=== PATIENT | female | born 1955 | race Caucasian/White ===

== ENCOUNTER 2022-06-24 10:53 | Outpatient (CLI) | payer MEDICARE, SELFPAY ==
--- NOTE | ~2022-06-24 | XR_ITS ---
Right Knee Technique: AP, lateral, and sunrise views were obtained. Clinical History: Pain Findings: No fracture or dislocation is seen. There is moderate to advanced tricompartmental osteophy tosis, probably worst in the medial compartment.. Soft tissues are unremarkable. No joint effusion is seen. Impression: Moderate to severe tricompartmental osteoarthritis. Reviewed, dictated and finalized at location . Impression: Moderate to severe tricompartmental osteoarthritis.
--- NOTE | ~2022-06-24 | XR_ITS ---
Right wrist Technique: PA, oblique, lateral, and ulnar deviation views were obtained. Clinical History: Pain Findings: There is probable widening is stable interval 6 mm, consistent with underlying scapholunate ligament tear. There is moderate degenerative change of the radial scaphoid articulation. There is a ssociated dorsal tilt of the lunate on lateral view consistent with DISI. Soft tissues are unremarkab le. Impression: Probable scapholunate ligament tear with associated DISI. Reviewed, dictated and finalized at location M. Impression: Probable scapholunate ligament tear with associated DISI.
--- NOTE | ~2022-06-24 | XR_ITS ---
Right Hand Technique: PA, oblique, and lateral views were obtained. Clinical History: Pain Findings: No acute fracture or dislocation is seen. There is advanced degenerative change of the seco nd DIP joint. Remaining joint spaces and the hand appear intact. There is degenerative change at the radial scaphoid articulation.. Soft tissues are unremarkable. Impression: Advanced degenerative change of the second DIP joint. Moderate to advanced degenerative change at the radial scaphoid articulation. Reviewed, dictated and finalized at location M. Impression: Advanced degenerative change of the second DIP joint. Moderate to advanced degenerative change at the radial scaphoid articulation.
--- NOTE | ~2022-06-24 | XR_ITS ---
Right Shoulder Technique: AP and scapular Y views were obtained. Clinical History: Pain Findings: No fracture or dislocation is seen. Suture anchor noted at the humeral head. Osseous alignm ent is anatomic. There is minimal degenerative change of the glenohumeral joint. Soft tissues are unr emarkable. Impression: No acute fracture or dislocation. Minimal degenerative change of the glenohumeral joint. Suture anchors at the humeral head. Correlate with surgical history. Reviewed, dictated and finalized at [facility]. Impression: No acute fracture or dislocation. Minimal degenerative change of the glenohumeral joint. Suture anchors at the humeral head. Correlate with surgical history.
== END 2022-06-24 10:54 | disposition home or self-care (01) ==
PROVIDERS: PCP Internal Medicine; Visit Provider Internal Medicine
DX: M17.11 Unilateral primary osteoarthritis, right knee (principal); M19.041 Primary osteoarthritis, right hand; M19.011 Primary osteoarthritis, right shoulder; M25.431 Effusion, right wrist; M25.461 Effusion, right knee; M25.531 Pain in right wrist; M79.89 Other specified soft tissue disorders
CPT/HCPCS: 73030; 73110; 73130; 73564

== ENCOUNTER 2023-12-30 08:29 | Outpatient (CLI) | payer MEDICARE, SELFPAY ==
--- NOTE | ~2023-12-30 | CT_ITS ---
CT of the Abdomen and Pelvis: Indication: Abdominal pain Technique: 2.5 mm axial scans were obtained through the abdomen and pelvis following intravenous adm inistration of 100 cc of Omnipaque 350. Dose reduction technique was used on this scan by utilizing a utomated exposure control and iterative reconstruction technique. The dose-length product (DLP) was 5 47.94 mGy-cm. Findings: Scans through the lung bases demonstrate irregular lingular nodule measuring 8 mm, likely focal scarring.. The liver, spleen, pancreas, gallbladder, adrenals and kidneys are within normal limits. No evidence of aortic aneurysm. No lymphadenopathy. Questionable mild wall thickening of the distal rectum versus underdistention. Images through the pel vis were performed. Urinary bladder unremarkable. No pelvic mass seen. No ascites. Impression: Possible mild wall thickening of the distal rectum. Correlate for focal colitis. 8 mm lingular nodule, likely focal scarring. Follow-up CT scan in 3-6 months recommended to reassess. Reviewed, dictated and finalized at [facility]. EP MECHANIC Impression: Possible mild wall thickening of the distal rectum. Correlate for focal colitis . 8 mm lingular nodule, likely focal scarring. Follow-up CT scan in 3-6 months re commended to reassess.
[2023-12-30 09:09] LABS: Estimated Glomerular Filt Rate > 60
[2023-12-30 09:39] LABS: Basophils Percent Auto 0.7 % (0.2-1.2); Eosinophils Absolute Auto 0.2 K/mm3 (0-0.3); Eosinophils Percent Auto 3.4 % (0-4.4); Hemoglobin 14.5 g/dL (12.0-15.0); Immature Granulocyte Absolute 0.01 K/mm3 (0.00-0.031); Immature Granulocyte Percent A 0.2 % (0-0.5); Lymphocytes Absolute Auto 1.96 K/mm3 (0.9-3.2); Mean Corpuscular Hemoglobin 29.6 pg (26-34); Mean Corpuscular Volume 89.8 fl (80-100); Mean Platelet Volume 10.9 fl (7.4-10.4); Monocytes Absolute Auto 0.6 K/mm3 (0.1-0.6); Neutrophils Absolute Auto 2.8 K/mm3 (1.3-6.7); Neutrophils Percent Auto 50.7 % (45.5-73.1); Platelet Count Result 290 k/mm3 (150-375); Red Cell Distribution Width 13.4 % (11.5-14.5); White Blood Count 5.6 K/mm3 (4.5-10.0)
[2023-12-30 10:00] LABS: Anion Gap 6 mmol/L (4-12); Blood Urea Nitrogen 15 mg/dL (7-17); CRP 0.8 mg/dL (<1.0); Calcium 9.3 mg/dL (8.4-10.2); Carbon Dioxide 30 mmol/L (22-30); Chloride 105 mmol/L (98-107); Estimated Glomerular Filt Rate > 60; Glucose 96 mg/dL (65-110); Potassium 4.1 mmol/L (3.4-5.0); Sodium 141 mmol/L (137-145)
[2023-12-30 11:01] LABS: Erythrocyte Sedimentation Rate 21 mm/hr (0-20)
== END 2023-12-30 08:30 | disposition home or self-care (01) ==
PROVIDERS: PCP Internal Medicine; Visit Provider Internal Medicine
DX: K57.92 Diverticulitis of intestine, part unspecified, without perforation or abscess without bleeding (principal); R19.5 Other fecal abnormalities
CPT/HCPCS: 36415; 74177; 80048; 85025; 85652; 86140; Q9967

== ENCOUNTER 2024-04-07 01:46 | Day surgery (SDC) | payer MEDICARE, SELFPAY ==
[2024-03-25 10:26] VITALS: BMI 29.9
--- OUTSIDE RECORDS SUMMARY | 2024-04-07 01:49 | XMS_ITS | Clinical Summary ---
Author Organization [facility] Office Center Address [address] [place] [address] Care Team Providers Care Bag Machine Adjuster Name Role Phone Layton Santos MD Primary Care Provider [phone] Allergies No known active allergies Medications docosahexaenoic acid/epa (FISH OIL ORAL) Take by mouth Active UNABLE TO FIND Med Name: Tumeric oral Active cholecalciferol , vitamin D3, (VITAMIN D3 ORAL) Take by mouth Active VITAMIN K2 ORAL Take by mouth Active BIOTIN ORAL Take by mouth Acti ve meloxicam (MOBIC) 15 mg tablet Take 1 tablet (15 mg total) by mouth 06/17/2022 Active acetaminophen (TYLENOL) 500 mg tablet Take 1 tablet (500 mg total) by mouth every 4 (four) hours as needed Active cefadroxil (DURICEF) 500 mg capsule Take by mouth daily Active celecoxib (CeleBREX) 200 mg capsule Take 1 capsule (200 mg total) by mouth 2 (two) times a day 05/26/2023 Active heparin sodium,porcine/ NS/PF (heparin in 0.9% sodium chloride) 1,000 units/500 mL (2 unit/mL) infusion Infuse 5 mL into a venous catheter every 8 (eight) hours 04/08/2023 Active oxyCODONE (ROXICODONE) 10 mg tablet Take 0.5-1 tablets (5-10 mg total) by mouth every 4 (four) hours as needed 02/27/2023 Active polyethylene glycol (MIRALAX) 17 gram/dose bulk powder Take 17 g by mouth daily as needed 02/27/2023 Active Hospital, Clinic, or Other Facility Administered Medication Ordered Dose Route Frequency Start Date End Date Status lidocaine (XYLOCAINE) 10 mg/mL (1 %) injection 1 mLIndications:Admi nistration of Local Anesthesia 1 mL One-Time Injection 03/08/2024 03/08/2024 Ended methylPREDNISolone acetate (DEPO-medrol) injection 40 mgIndications:Arth ritis of right wrist 40 mg intra-artic One-Time Injection 03/08/2024 03/08/2024 Ended Active Problems Problem Noted Date Diagnosed Date Bacteremia 03/31/2023 Infection of right knee 03/30/2023 Postoperative complication o f skin involving drainage from surgical wound 03/30/2023 Primary osteoarthritis of right knee 08/01/2022 Diverticulitis 10/31/2021 Assessment & Plan (02/11/2022 9:00 AM TUBE TELLER): At the end of September 2021 patient had left lower quadrant pain, blood and mucus in her stool. She saw her PCP and was treated with Cipro and Flagyl which she completed in the 1st week of October 2021. Since then her blood mucus have resolved, however she continued to have left lower quadrant abdominal discomfort, therefore CT scan was ordered in October 2021 which was notable for diverticulosis but was otherwise unremarkable. Abdominal pain has since resolved. -colonoscopy December 2021 as above -high-fiber diet -if patient has recurrent diverticulitis, we will consider referral to surgery Assessment & Plan (10/31/2021 11:41 AM CDT): At the end of September 2021 patient had left lower quadrant pain, blood and mucus in her stool. She saw her PCP and was treated with Cipro and Flagyl which she completed in the 1st week of October 2021. Since then her blood mucus have resolved, however she continues to still have left lower quadrant abdominal discomfort. Her last colonoscopy was in [place] in October 2019 and per patient it was normal. -we will order CT scan to rule out potential complications of diverticulitis given continued left lower quadrant pain despite treatment with Cipro and Flagyl -we will schedule colonoscopy 6-[address] scan -The risks (risks of bleeding, infection, perforation requiring surgery, missed polyps/cancer, dental injury, aspiration pneumonia, anesthesia complications such as drug reaction and cardiopulmonary complications including rare chance of ), benefits, and alternatives of the planned procedure were explained to the patient who understands and consents to having procedure done. History of colonic polyps 10/31/2021 Assessment & Plan (02/11/2022 8:48 AM TUBE TELLER): Per patient colonoscopy in 2015 in [place] with polyps removed. Repeat colonoscopy October 2019 in [place] with no polyps per patient. No records available for review. Colonoscopy December of 2021 as above, 1 benign polyp removed. -repeat colonoscopy December 2026 Assessment & Plan (10/31/2021 11:42 AM CDT): Per patient colonoscopy in 2015 in [place] with polyps removed. Repeat colonoscopy October 2019 in [place] with no polyps per patient. No records available for review. Encounters Date Type Department Care Team Description 03/08/2024 8:20 AM TUBE TELLER Office Visit [facility] Orthopaedic Surgery [address] [place] [address] [place] [address] Tk Ball MD Arthritis of right wrist (Primary Dx) from Last 3 Months Immunizations Immunization Administration Dates Next Due Moderna SARS-CoV-2 Monovalen t Vaccination (12+ YRS) 06/23/2021,12/01/2020,03/24/2020,2020 Surgical History Surgery Date Site/Laterality Comments HERNIA REPAIR Bilateral SHOULDER SURGERY Right COLONOSCOPY 10/26/2019 Medical History Medical History Date Comments Diverticulitis Colon polyp Family History Medical History Relation Name Comments Hypertension Father Ant Oneill Prostate cancer Father Ant Oneill Heart failure Mother Relation Name Status Comments Father Ant Oneill Mother Social History Tobacco Use Types Packs/Day Years Used Date Smoking Tobacco: Never Smokeless Tobacco: Never Tobacco Cessation:Counseling Given: Not Answered AUDIT-C Answer Date Recorded Q1: How often do you have a drink containing alc ohol? Monthly or less 02/11/2022 Q2: How many drinks containi ng alcohol do you have on a typical day when you are drinking? 1 or 2 02/11/2022 Frequency of Binge Drinking Not on file 04/2022 Comments No Sex and Gender Information Value Date Recorded Sex Assigned at Not on file Legal Sex Female 11:00 AM CDT Gender Identity Not on file Sexual Orientation Not on file Obstetrics History Para Term AB IAB SAB Ectopic Multiple Livin g Live Births 3 3 3 3 3 Date Outcome GA Total Labor Labor/2nd/3rd Weight Sex Type Anes PTL Yoon A1 A5 Name Clin Term Vag-S pont Living Term Vag-S pont Living Term Vag-S pont Living Last Filed Vital Signs Vital Sign Reading Time Taken Comments Blood Pressure 132/86 07/22/2022 11:40 AM CDT Pulse 83 02/11/2022 8:39 AM TUBE TELLER Temperature 36.6 C (97.8 F) 01/08/2022 8:14 AM TUBE TELLER Respiratory Rate 19 01/08/2022 8:40 AM TUBE TELLER Oxygen Saturation 96% 02/11/2022 8:39 AM TUBE TELLER Inhaled Oxygen Concentration - - Weight 72.1 kg (159 lb) 12/01/2023 8:28 AM CDT Height 154.9 cm (5' 0.98 ) 07/22/2022 11:40 AM C DT Body Mass Index 30.06 07/22/2022 11:40 AM CDT Plan of Treatment Health Maintenance Due Date Last Done Comments Depression Screening 1955 Hepatitis C Screening 1955 DTaP/Tdap/Td Vaccine (1 - Tdap) 1964 Hepatitis B Screening 06/12/1971 Pneumococcal vaccine 65+ (1 of 1 - PCV) 06/12/2003 Zoster Vaccine (1 of 2) 06/12/2003 Fall Risk Assessment 01/08/2023 01/08/2022 Well Visit 65+ 07/23/2023 07/22/2022 Covid-19 Vaccine (5 - 2023-2 5 season) 2023 06/23/2021, 12/01/2020, 03/24/2020, Additional history exists Influenza Vaccine (#1) 2023 Osteoporosis Screening-Bone Density Scan 11/04/2024 11/04/2022 Breast Cancer Screening-Mammogram 11/09/2024 024, 11/04/2022 Colon Cancer Screening-Colonoscopy 01/09/20322021, 01/08/2022 Medical Devices Implanted Type Area Caisson Worker Device Identifier Shelf Expiration Date Model / Serial / Lot Screws Right: Shoulder Description:RIGHT SHOULDER Procedures Procedure Name Priority Date/Time Associated Diagnosis Comments [place] ARTHROCENTESIS ASPIR&/INJ INTERM JT/BURS W/O US Routine 03/08/2024 8:20 AM TUBE TELLER Arthritis of right wrist SCAN - RADIOLOGY/IMAGING 03/08/2024 8:18 AM TUBE TELLER SCREENING MAMMOGRAM BILATERAL W BIJAL Schedule Routine, Read Routine (OP Routine) 11/10/2023 7:51 AM CDT Screening mammogram, encounter for DEXA AXIAL SKELETON BONE DENSITY 1 OR MORE SITES Schedule Routine, Read Routine (OP Routine) 11/04/2022 8:08 AM CDT Menopause HM COLONOSCOPY Routine 01/08/2022 from Last 3 Months or Most Recently Relevant to Health Maintenance Results * WA ARTHROCENTESIS ASPIR&/INJ INTERM JT/BURS W/O US (03/08/2024 8:20 AM TUBE TELLER) Narrative Tk Ball MD - 03/08/2024 8:20 AM TUBE TELLER Tk Ball MD 03/08/2024 9:01 AM Medium Joint Injection: R radiocarpal Performed by: Tk Ball MD Authorized by: Tk Ball MD Medium Joint Injection/Aspiration: Consent Given by: Patient Timeout: prior to procedure the correct patient, procedure, and site was verified Verbal consent obtained?: Yes Supporting Documentation: Indications: Pain Procedure Details: Location: Wrist Site: R radiocarpal Approach: Dorsal Medications: 1 mL lidocaine 10 mg/mL (1 %); 40 mg methylPREDNISolone acetate 40 mg/mL Patient tolerance: Patient tolerated the procedure well with no immediate complications us Tk Ball MD IN CLINIC/BEDSIDE ORDERABLES Final Result * SCAN - RADIOLOGY/IMAGING (03/08/2024 8:18 AM TUBE TELLER) Anatomical Region Laterality Modality Other us Provider Scanning Final Result * Screening Mammogram Bilateral W [place]al (11/10/2023 7:51 AM CDT) Anatomical Region Laterality Modality Breast Bilateral Mammography Impressions 11/10/2023 8:40 AM CDT BI-RADS ATLAS category (overall): 2 - Benign There is no mammographic evidence of malignancy. A 1 year screening mammogram is recommended. The patient has been or will be contacted. We recommend annual screening mammography for women at average risk of breast cancer beginning at age 40, based on guidelines of the [employer] (ACR Practice Parameter for the Performance of Screening and Diagnostic Mammography) and [employer]. For women with and elevated risk of breast cancer, please refer to the ACR Practice Parameter for specific screening recommendations. The patient will be entered into a reminder system with a target due date of 1 year for her next screening exam. Narrative 11/10/2023 8:40 AM CDT Screening Mammogram Bilateral W Bijal: 11/10/23 The study was acquired using full field digital technology and interpreted from soft copy. 2D digital mammographic views, as well as 3D digital tomosynthesis were performed in the CC and MLO projections. CLINICAL: Screening mammogram, encounter for. No relevant medical history has been documented for this patient. No known family history of breast cancer. COMPARISONS: 11/04/2022 Screening Mammogram Bilateral W [place] 05/21/2021 Breast Imaging Screening Outside Reference 04/26/2020 Breast Imaging Screening Outside Reference 04/25/2019 Breast Imaging Screening Outside Reference 04/22/2018 Breast Imaging Screening Outside Reference BREAST TISSUE: There are scattered areas of fibroglandular density. FINDINGS: There are a few stable benign calcifications in both breasts. There is an unchanged benign mass in the lower inner left breast. There is no new suspicious finding in either breast on mammogram. 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 IMPRESSION: Normal bone mass. REFERENCE: Bone mineral density: Normal (T-score above or = -1.0) Low bone mass (T-score between -1.0 and -2.5) replaces the previously used term osteopenia Osteoporosis (T-score = or below -2.5) Medical evaluation for secondary causes of low bone mineral density may be appropriate. FRAX is a World Health Organization validated fracture risk assessment tool that calculates a person's 10 year probability of a major osteoporosis related fracture and hip fracture. According to the National Osteoporosis Foundation guidelines, postmenopausal women and men age 50 or older with low bone mass and a 10 year probability of a major osteoporosis related fracture = or greater than 20% or a 10 year probability of a hip fracture = or greater than 3% should be considered for treatment. For further information, including treatment recommendations, please refer to the 2019 ISCD Official Positions (http://www.iscd.org) and the NOF's Clinician's Guide to Prevention and Treatment of Osteoporosis (http://www.nof.org/professionals/clinical-guidelines) THIS IS AN ELECTRONICALLY VERIFIED FINAL REPORT 11/04/2022 8:54 PM - Electronically signed by Blaise Grey M.D. 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 IMPRESSION: Normal bone mass. REFERENCE: Bone mineral density: Normal (T-score above or = -1.0) Low bone mass (T-score between -1.0 and -2.5) replaces thepreviously used term osteopenia Osteoporosis (T-score = or below -2.5) Medical evaluation for secondary causes of low bone mineral density may be appropriate. FRAX is a World Health Organization validated fracture risk assessmenttool that calculates a person's 10 year probability of a major osteoporosisrelated fracture and hip fracture. According to the National OsteoporosisFoundation guidelines, postmenopausal women and men age 50 or older with low bonemass and a 10 year probability of a major osteoporosis related fracture = or greater than 20% or a 10 year probability of a hip fracture = or greaterthan 3% should be considered for treatment. For further information, including treatment recommendations, please referto the 2019 ISCD Official Positions (http://www.iscd.org) and the NOF's Clinician's Guide to Prevention and Treatment of Osteoporosis (http://www.nof.org/professionals/clinical-guidelines) THIS IS AN ELECTRONICALLY VERIFIED FINAL REPORT 11/04/2022 8:54 PM - Electronically signed by Blaise DOBBINS: SHILPI Report ID: [id number] Reading Location: [place] [address] Nunu Newton MD IM DXA PROCEDURES Final R esult * HM COLONOSCOPY (01/08/2022) Scribed Colonoscopy Normal Comment:op note in chart Historical Provider HEALTH MAINTENANCE Final Result from Last 3 Months or Most Recently Relevant to Health Maintenance Insurance [employer]NA MEDICARE AETNA MEDICARE T MEDICARE Care Teams Bag Machine Adjuster Relationship Specialty Start Date End Date Layton Santos MD [address] [facility] [address] [place] [address] PCP - General Internal Medicine 06/24/22
--- OUTSIDE RECORDS SUMMARY | 2024-04-07 01:49 | XMS_ITS | Clinical Summary ---
Author Organization [facility] [employer] Address [address] [place] [address] Care Team Providers Care Hunting Sales Leader Name Role Phone Layton Santos MD Primary Care Provider [phone] Foster Silver MD Unavailable [phone] Source Comments [facility],non-owned Affiliates and Associated Physician Practices is amultiple site organization consisting of ambulatory clinics and hospital sitesin [place], [place], [place] and [place]. This disclosure is being madepursuant to the Care Everywhere program and may not contain all information available regarding this patient. Last updated 17.[facility] Allergies No known active allergies Medications * Be aware that medications may not be up to date on this document. Alwaysverify current medications with the patient. Medication Sig Dispensed Refills Start Date End Date Status [place]-3 Fatty Acids (FISH OIL PO)Indications:SUP PLEMENT Take 1,280 mg by mouth at bedtime Takes 2 at bedtime Reasons: SUPPLEMENT Active Turmeric (QC TUMERIC COMPLEX PO)Indications:SUP PLEMENT Take 1,500 mg by mouth at bedtime Takes 2 at bedtime Reasons: SUPPLEMENT Active Cholecalciferol (VITAMIN D3 PO)Indications:SUP PLEMENT Take 4,000 Units by mouth at bedtime Reasons: SUPPLEMENT Active Biotin 81789 MCGIndications:SUP PLEMENT Take 2 (two) tablets by mouth at bedtime Reasons: SUPPLEMENT Active Nutritional Supplements (OSAPLEX MK-7 PO)Indications:SUP PLEMENT Take 2 tablets by mouth at bedtime Reasons: SUPPLEMENT Active oxyCODONE, immediate release, (Roxicodone) 10 MG tabletIndications: Acute Pain Take 0.5 (one-half) tablet to 1 (one) tablet by mouth every 4 hours as needed for Pain (pain) 30 tablet 02/27/2023 Active Additional Information Patient not taking.Reported on 03/30/2023 omeprazole (PriLOSEC) 20 MG capsuleIndications :Heartburn Take 1 (one) capsule by mouth once daily for 42 days 42 capsule 02/26/2023 Active polyethylene glycol 3350 (GlycoLax) 17 GM/SCOOP powderIndications: Constipation Take 17 (seventeen) g by mouth once daily as needed for Constipation Reasons: Constipation 02/27/2023 Active acetaminophen (Tylenol) 500 MG tabletIndications: Pain Take 1 tablet by mouth every 4 hours as needed for Fever or Pain Maximum allowable Acetaminophen amount = 4 Grams (4000 mg) / 24 hours. Reasons: Pain Active Heparin, Porcine, in NaCl (heparinized saline) 1000-0.9 UT/500ML-% infusionIndication s:Patency Maintenance of Indwelling Catheter 5 mL by Intravenous route every 8 hours. Indications: Prevention of Closure of Indwelling Catheter 04/08/2023 Active Sodium Chloride Flush (0.9% NaCl) 0.9 % injectionIndicatio ns:Fluid and Electrolyte Disturbance 1-30 mL by Intracatheter route every 8 hours. Indications: Fluid and Electrolyte Disturbance 04/08/2023 Active cefadroxil (Duricef) 500 MG capsule Take 1 (one) capsule by mouth once daily 05/12/2023 Active celecoxib (CeleBREX) 200 MG capsule Take 1 (one) capsule by mouth 2 times daily 60 capsule 5 05/26/2023 Active Active Problems Problem Noted Date Diagnosed Date Bacteremia 03/31/2023 Postoperative complication o f skin involving drainage from surgical wound 03/30/2023 Infection of right knee 03/30/2023 Primary osteoarthritis of right knee 08/01/2022 Diverticulitis 10/31/2021 08/01/2022 Overview (08/01/2022): Last Assessment & Plan: At the end of September 2021 patient [...] diverticulitis, we will consider referral to surgery History of colonic polyps 10/31/20212022 Overview (08/01/2022): Last Assessment & Plan: Per patient colonoscopy in 2015 in [place] with polyps removed. Repeat colonoscopy October 2019 in [place] with no polyps per patient. No records available for review. Colonoscopy December of 2021 as above, 1 benign polyp removed. -repeat colonoscopy December 2026 Social History Tobacco Use Types Packs/Day Years Used Date Smoking Tobacco: Never Smokeless Tobacco: Never Tobacco Cessation:Counseling Given: Not Answered Alcohol Use Standard Drinks/Week Comments Yes 14 (1 standard drink = 0.6 oz pu re alcohol) OASIS D0700: Social Isolation Answer Da te Recorded Frequency of experiencing loneliness or isolatio n Never 05/13/2023 OASIS A1250: Transportation Answer Date Recorded Lack of Transportation (Medical) No 05/13/2023 Lack of Transportation (Non-Medical) No 05/13/2023 Patient Unable or Declines to Respond No 05/13/2023 OASIS B1300: Health Literacy Answer Taqueria e Recorded Frequency of needing help to read materials from doctor or pharmacy Never 05/13/2023 AUDIT-C Answer Date Recorded Q1: How often do you have a drink containing alcohol? 4 or more times a week 03/30/2023 Q2: How many drinks containi ng alcohol do you have on a typical day when you are drinking? 1 or 2 Q3: How often do you have si x or more drinks on one occasion? Never 03/30/2023 Overall Financial Resource Strain (CARDIA) Answe r Date Recorded How hard is it for you to pa y for the very basics like food, housing, medical care, and heating? Not hard at all 03/30/2023 PHQ-2 Answer Date Recorded Patient Health Questionnaire-2 Score 0 09/04/2023 [facility] [place] of Occupat ional Health - Occupational Stress Questionnaire Answer Date Recorded Do you feel stress - tense, restless, nervous, or anxious, or unable to sleep at night because your mind is troubled all the time - these days? Not at all 03/30/2023 Hunger Vital Sign Answer Date Recorded Within the past 12 months, y ou worried that your food would run out before you got the money to buy more. Never true 03/30/19 24 Within the past 12 months, t he food you bought just didn't last and you didn't have money to get more. Never true 03/30/2023 PRAPARE - Transportation Answer Date Re corded In the past 12 months, has l ack of transportation kept you from medical appointments or from getting medications? No 03/12 In the past 12 months, has l ack of transportation kept you from meetings, work, or from getting things needed for daily living? No 03/30/2023 Housing Stability Vital Sign Answer Taqueria e Recorded In the last 12 months, was t here a time when you were not able to pay the mortgage or rent on time? No 03/30/2023 In the last 12 months, how many places have you lived? 2 03/30/2023 In the last 12 months, was t here a time when you did not have a steady place to sleep or slept in a skilled nursing (including now)? No 03/30/2023 Sex and Gender Information Value Date Recorded Sex Assigned at Not on file Gender Identity Not on file Sexual Orientation Not on file Last Filed Vital Signs Vital Sign Reading Time Taken Comments Blood Pressure 118/78 05/11/2023 9:57 AM CDT Pulse 84 05/11/2023 9:57 AM CDT Temperature 36.7 C (98 F) 05/11/2023 9:57 AM CDT Respiratory Rate 16 05/11/2023 9:57 AM CDT Oxygen Saturation 98% 05/11/2023 9:57 AM CDT Inhaled Oxygen Concentration - - Weight 70.3 kg (155 lb) 04/03/2023 7:32 AM HAMPER MAKER MACHINE Height 154.9 cm (5' 1 ) 04/03/2023 7:32 AM HAMPER MAKER MACHINE Body Mass Index 29.29 04/03/2023 7:32 AM HAMPER MAKER MACHINE Plan of Treatment Health Maintenance Due Date Last Done Comments COLOGUARD (AGES 45-75) - COLON CA SCREENING 1953 COLON MONITORING 1953 COLONOSCOPY - COLON CA SCREENING 1953 CT COLONOGRAPHY - COLON CA SCREENING 1953 Colorectal Cancer Screening 1953 FIT - COLON CA SCREENING 1953 FLEX SIG - COLON CA SCREENING 1953 LIPID TESTING 1953 HEPATITIS C SCREENING 06/07/1971 DTAP/TDAP/TD VACCINES (1 - Tdap) 1972 PNEUMOCOCCAL VACCINE 50+ (1 of 1 - PCV) 06/12/2003 ZOSTER VACCINE (1 of 2) 06/12/2003 Respiratory Syncytial Virus (RSV) Vaccine Pt: or over 60 yrs (1 - Risk 60-74 years 1-dose series) 2013 COVID-19 VACCINE (2023- season) 2023 12/10/2022, 12/03/2021, 06/23/2021, Additional history exists INFLUENZA VACCINE (#1) 2023 12/10/2022, 2021 DEPRESSION SCREENING 02/10/2024 09/08/2023 MEDICARE AWV CALENDAR YEAR 2024 MAMMOGRAM 11/04/2024 11/04/2022, 11/04/2022 SCREENING FOR DIABETES 04/06/2026 , 04/02/2023, 03/30/2023, Additional history exists BONE DENSITY TESTING Completed 11/04/2022 HEPATITIS B VACCINE Aged Out No longe r eligible based on patient's age to complete this topic HIB VACCINE Aged Out No longer eligi ble based on patient's age to complete this topic HPV VACCINE Aged Out No longer eligi ble based on patient's age to complete this topic MENINGOCOCCAL (Group B) VACCINE Aged Out No longer eligible based on patient's age to complete this topic MENINGOCOCCAL VACCINE Aged Out No etta aliya eligible based on patient's age to complete this topic Medical Devices Implanted Type Area Editorial Cartoonist Device Identifier Shelf Expiration Date Model / Serial / Lot Cmnt Bone Plc R 40gm Grn Implanted:Qty: 1 on 02/26/2023 by Foster Silver MD at [facility] Right: Knee [employer] 07/09/2025 [id number] / / [id number] Tray Tib 75mm Kn Cocr I Beam Implanted:Qty: 1 on 02/26/2023 by Foster Silver MD at [facility] Right: Knee [employer] 10/28/2031 [id number] / / [id number] Cmpnt Fem Kn Rt Cr Cmnt Prm Vngrd Intlk 67.5 Mm Implanted:Qty: 1 on 02/26/2023 by Foster Silver MD at [facility] Right: Knee [employer] 12/27/2032 [id number] / / [id number] Cmpnt Ptlr Std 28mm 3 Pg Kn Ser A Implanted:Qty: 1 on 02/26/2023 by Foster Silver MD at [facility] Right: Knee [employer] 12/19/2027 [id number] / / [id number] Brng [id number] Vngrd Arcm Kn Ant Stab Implanted:Qty: 1 on 02/26/2023 by Foster Silver MD at [facility] Right: Knee [employer] 06/26/2025 [id number] / / [id number] Cmpnt Tibtry Kn Prm Lck Bar Bmt As Mx Implanted:Qty: 1 on 03/31/2023 by Tari Lloyd MD at [facility] Right: Knee [employer] 12/13/2032 [id number] / / [id number] Brng [id number] Vngrd Arcm Kn Ant Stab Implanted:Qty: 1 on 03/31/2023 by Tari lLoyd MD at [facility] Right: Knee [employer] 03/09/2027 [id number] / / [id number] Cmpnt Tibtry Kn Prm Lck Bar Bmt As Mx Implanted:Qty: 1 on 04/02/2023 by Tari Lloyd MD at [facility] Right: Knee [employer] 01/20/2033 [id number] / / [id number] Tibial Bearing 18mm Implanted:Qty: 1 on 04/02/2023 by Tari Lloyd MD at [facility] Right: Knee 09/09/2023 [id number] / / [id number] Procedures Procedure Name Priority Date/Time Associated Diagnosis Comments COMPREHENSIVE METABOLIC PANEL AM Draw 04/06/2023 2:26 AM HAMPER MAKER MACHINE from Last 3 Months or Most Recently Relevant to Health Maintenance Results * (ABNORMAL) COMPREHENSIVE METABOLIC PANEL (04/06/2023 2:26 AM HAMPER MAKER MACHINE) Glucose 94 70 - 105 mg/dL 04/06/2023 3:07 AM [facility] Sodium 142 136 - 145 mmol/L 04/06/2023 3:07 AM [facility] Potassium 3.8 3.5 - 5.1 mmol/L 04/06/2023 3:07 AM [facility] Chloride 108(H) 98 - 107 mmol/L 04/06/2023 3:07 AM [facility] CO2 26 22 - 29 mmol/L 04/06/2023 3:07 AM [facility] Calcium 8.6 8.4 - 10.4 mg/dL 04/06/2023 3:07 AM [facility] Anion Gap 8 6 - 16 mmol/L 04/06/2023 3:07 AM [facility] BUN 15 7 - 26 mg/dL 04/06/2023 3:07 AM [facility] Creatinine 0.54(L) 0.57 - 1.11 mg/dL 04/06/2023 3:07 AM [facility] Alkaline Phosphatase 120 40 - 150 U/L 04/06/2023 3:07 AM [facility] ALT 19 0 - 55 U/L 04/06/2023 3:07 AM [facility] AST 27 5 - 34 U/L 04/06/2023 3:07 AM [facility] Protein Total 5.6(L) 6.4 - 8.3 gm/dL 04/06/2023 3:07 AM [facility] Albumin 2.3(L) 3.4 - 5.0 gm/dL 04/06/2023 3:07 AM [facility] Bilirubin Total 0.3 0.2 - 1.2 mg/dL 04/06/2023 3:07 AM [facility] eGFR by CKD-EPI >90 >=90 mL/min/1.7 3 m2 04/06/2023 3:07 AM HAMPER MAKER MACHINE [facility] Blood BLOOD SPECIMEN / Unknown Venipuncture / Unknown 04/06/2023 2:26 AM HAMPER MAKER MACHINE 04/06/2023 2:47 AM HAMPER MAKER MACHINE Joellen Hannah MD LAB - CHEMISTRY J LUIS Anderson Organization Address City/State/ZIP Co de Phone Number [facility] [address] [place] [address] from Last 3 Months or Most Recently Relevant to Health Maintenance Advance Directives Documents on File Type Date Recorded Patient Licensed Therapist Expl anation Adv Directive/Living Will/POA 03/04/2023 2:43 AM * Full Code (Latest Code Status on File) Date Activated Date Inactivated Comments 03/30/2023 6:28 PM 04/06/2023 7:13 PM * Full Code Date Activated Date Inactivated Comments 03/30/2023 1:08 PM 03/30/2023 3:09 PM * Full Code Date Activated Date Inactivated Comments 02/28/2023 4:29 PM 03/30/2023 1:08 PM To update th e patient's code status, place a code status order. Do not modify or discontinue any currently active code status orders. * Full Code Date Activated Date Inactivated Comments 02/26/2023 12:35 PM 02/27/2023 1:25 PM Care Teams Hunting Sales Leader Relationship Specialty Start Date End Date Layton Santos MD [address] [place] [address] PCP - General Internal Medicine 07/29/22 [place] [address] [place] [address] Surgeon Orthopedic Surgery 03/30/23
--- OUTSIDE RECORDS SUMMARY | 2024-04-07 01:49 | XMS_ITS | Referral Summary ---
Author Organization [facility] [employer] Address [address] [place] [address] Care Team Providers Care Timber Cruiser Name Role Phone Layton Santos MD Primary Care Provider [phone] Foster Silver MD Unavailable [phone] Source Comments [facility],non-owned Affiliates and Associated Physician Practices is amultiple site organization consisting of ambulatory clinics and hospital sitesin [place], [place], [place] and [place]. This disclosure is being madepursuant to the Care Everywhere program and may not contain all information available regarding this patient. Last updated 17.[facility] Allergies No known active allergies Medications * Be aware that medications may not be up to date on this document. Alwaysverify current medications with the patient. Medication Sig Dispensed Refills Start Date End Date Status [place]-3 Fatty Acids (FISH OIL PO)Indications:SUP PLEMENT Take 1,280 mg by mouth at bedtime Takes 2 at bedtime Reasons: SUPPLEMENT Active Turmeric (QC TUMERIC COMPLEX PO)Indications:SUP PLEMENT Take 1,500 mg by mouth at bedtime Takes 2 at bedtime Reasons: SUPPLEMENT Active Cholecalciferol (VITAMIN D3 PO)Indications:SUP PLEMENT Take 4,000 Units by mouth at bedtime Reasons: SUPPLEMENT Active Biotin 99550 MCGIndications:SUP PLEMENT Take 2 (two) tablets by [...] Plan: [place] Recorded Patient Health Questionnaire-2 Score 0 09/04/2023 [facility] [place] of Occupat ional Health - Occupational Stress [...] place to sleep or slept in a [place] health [place] facility (including now)? No 03/30/2023 Sex and Gender [...] 70.3 kg (155 lb) 04/03/2023 7:32 AM ELECTRICIAN RECTIFIER MAINTENANCE Height 154.9 cm (5' 1 ) 04/03/2023 7:32 AM ELECTRICIAN RECTIFIER MAINTENANCE Body Mass Index 29.29 04/03/2023 7:32 AM ELECTRICIAN RECTIFIER MAINTENANCE Functional Status Functional Status Response Date of Assess ment Is person deaf or have serious hearing difficult y? No 03/30/2023 Is person blind or have serious difficulty seein g? No 03/30/2023 Does person have serious dif ficulty walking/climbing stairs? No 03/30/2023 Does person have difficulty dressing/bathing? No 03/30/2023 Does person have difficulty doing errands alone? No 03/30/2023 Cognitive Status Response Date of Assessm ent Does person have difficulty concentrating/remembering/making decisions? No 03/30/2023 Plan of Treatment Not on file Medical Devices Implanted Type Area Ladle Filler Device Identifier Shelf Expiration Date Model / Serial / Lot Cmnt Bone Plc R 40gm Grn Implanted:Qty: 1 on 02/26/2023 by Foster Silver MD at [facility] Right: Knee [employer] 07/09/2025 [id number] / / [id number] Tray Tib 75mm Kn Cocr I Beam Implanted:Qty: 1 on 02/26/2023 by Foster Silver MD at [facility] Right: Knee [employer] 10/28/2031 [id number] / / [id number] Cmpnt Fem Kn Rt Cr Cmnt Prm Vngrd Intlk 67.5 Mm Implanted:Qty: 1 on 02/26/2023 by Foster Silver MD at [facility] Right: Knee [employer] 12/27/2032 [id number] / / [id number] Cmpnt Ptlr Std 28mm 3 Pg Kn Ser A Implanted:Qty: 1 on 02/26/2023 by Foster Silver MD at [facility] Right: Knee [employer] 12/19/2027 [id number] / / [id number] Brng [id number] Vngrd Arcm Kn Ant Stab Implanted:Qty: 1 on 02/26/2023 by Foster Silver MD at [facility] Right: Knee [employer] 06/26/2025 [id number] / / [id number] Cmpnt Tibtry Kn Prm Lck Bar Bmt As Mx Implanted:Qty: 1 on 03/31/2023 by Tari Lloyd MD at [facility] Right: Knee [employer] 12/13/2032 [id number] / / [id number] Brng [id number] Vngrd Arcm Kn Ant Stab Implanted:Qty: 1 on 03/31/2023 by Tari Lloyd MD at [facility] Right: Knee [employer] 03/09/2027 [id number] / / [id number] Cmpnt Tibtry Kn Prm Lck Bar Bmt As Mx Implanted:Qty: 1 on 04/02/2023 by Tari Lloyd MD at [facility] Right: Knee [employer] 01/20/2033 [id number] / / [id number] Tibial Bearing 18mm Implanted:Qty: 1 on 04/02/2023 by Tari Lloyd MD at [facility] Right: Knee 09/09/2023 [id number] / / [id number] Procedures Procedure Name Priority Date/Time Associated Diagnosis Comments COMPREHENSIVE METABOLIC PANEL AM Draw 04/06/2023 2:26 AM ELECTRICIAN RECTIFIER MAINTENANCE from Last 3 Months or Most Recently Relevant to Health Maintenance Results * (ABNORMAL) COMPREHENSIVE METABOLIC PANEL (04/06/2023 2:26 AM ELECTRICIAN RECTIFIER MAINTENANCE) Glucose 94 70 - 105 mg/dL 04/06/2023 3:07 AM ELECTRICIAN RECTIFIER MAINTENANCE [facility] Sodium 142 136 - 145 mmol/L 04/06/2023 3:07 AM ELECTRICIAN RECTIFIER MAINTENANCE [facility] Potassium 3.8 3.5 - 5.1 mmol/L 04/06/2023 3:07 AM ELECTRICIAN RECTIFIER MAINTENANCE [facility] Chloride 108(H) 98 - 107 mmol/L 04/06/2023 3:07 AM ELECTRICIAN RECTIFIER MAINTENANCE [facility] CO2 26 22 - 29 mmol/L 04/06/2023 3:07 AM ELECTRICIAN RECTIFIER MAINTENANCE [facility] Calcium 8.6 8.4 - 10.4 mg/dL 04/06/2023 3:07 AM ELECTRICIAN RECTIFIER MAINTENANCE [facility] Anion Gap 8 6 - 16 mmol/L 04/06/2023 3:07 AM ELECTRICIAN RECTIFIER MAINTENANCE [facility] BUN 15 7 - 26 mg/dL 04/06/2023 3:07 AM ELECTRICIAN RECTIFIER MAINTENANCE [facility] Creatinine 0.54(L) 0.57 - 1.11 mg/dL 04/06/2023 3:07 AM ELECTRICIAN RECTIFIER MAINTENANCE [facility] Alkaline Phosphatase 120 40 - 150 U/L 04/06/2023 3:07 AM ELECTRICIAN RECTIFIER MAINTENANCE [facility] ALT 19 0 - 55 U/L 04/06/2023 3:07 AM ELECTRICIAN RECTIFIER MAINTENANCE [facility] AST 27 5 - 34 U/L 04/06/2023 3:07 AM ELECTRICIAN RECTIFIER MAINTENANCE [facility] Protein Total 5.6(L) 6.4 - 8.3 gm/dL 04/06/2023 3:07 AM ELECTRICIAN RECTIFIER MAINTENANCE [facility] Albumin 2.3(L) 3.4 - 5.0 gm/dL 04/06/2023 3:07 AM ELECTRICIAN RECTIFIER MAINTENANCE [facility] Bilirubin Total 0.3 0.2 - 1.2 mg/dL 04/06/2023 3:07 AM ELECTRICIAN RECTIFIER MAINTENANCE [facility] eGFR by CKD-EPI >90 >=90 mL/min/1.7 3 m2 04/06/2023 3:07 AM ELECTRICIAN RECTIFIER MAINTENANCE [facility] Blood BLOOD SPECIMEN / Unknown Venipuncture / Unknown 04/06/2023 2:26 AM ELECTRICIAN RECTIFIER MAINTENANCE 04/06/2023 2:47 AM ELECTRICIAN RECTIFIER MAINTENANCE Joellen Hannah MD LAB - CHEMISTRY J LUIS SEPULVEDA [facility] Organization Address City/State/ZIP Co de Phone Number [facility] [address] [place] [id number] from Last 3 Months or Most Recently Relevant to Health Maintenance Advance Directives Documents on File Type Date Recorded Patient Hoisting Pile Driving Engineer Expl anation Adv Directive/Living Will/POA 03/04/2023 2:43 [...] 12:35 PM 02/27/2023 1:25 PM Care Teams Timber Cruiser Relationship Specialty Start Date End Date Layton Santos MD [address] [facility] [address] [place] [address] PCP - General Internal Medicine 07/29/22 [place] [address] [place] [address] Surgeon Orthopedic Surgery 03/30/23
--- OUTSIDE RECORDS SUMMARY | 2024-04-07 01:49 | XMS_ITS | Referral Summary ---
Author Organization [facility] Address [address] [place] [address] Care Team Providers Care Job Honer Name Role Phone Layton Santos MD Primary Care Provider [phone] Encounters Date Type Department Care Team Description 03/08/2024 8:20 AM BICYCLE MESSENGER Office Visit [facility] Orthopaedic Surgery [facility] Medicine [address] [place] [address] [place] [address] Tk Ball MD Arthritis of right wrist (Primary Dx) from Last 3 Months Allergies No known active allergies Medications docosahexaenoic [...] 10/31/2021 Assessment & Plan (02/11/2022 9:00 AM BICYCLE MESSENGER): At the end of September 2021 patient had left lower quadrant pain, blood and mucus in her stool. She saw her PCP and was treated with Cipro and Flagyl which she completed in the week of October 2021. Since then her [...] abdominal discomfort. Her last colonoscopy was in [place] in October 2019 and per patient it [...] 10/31/2021 Assessment & Plan (02/11/2022 8:48 AM BICYCLE MESSENGER): Per patient colonoscopy in 2015 in [place] with polyps removed. Repeat colonoscopy October 2019 in [place] with no polyps per patient. No records available for review. Colonoscopy December of 2021 as above, 1 benign polyp removed. -repeat colonoscopy December 2026 Assessment & Plan (10/31/2021 11:42 AM CDT): Per patient colonoscopy in 2015 in [place] with polyps removed. Repeat colonoscopy October 2019 in [place] with no polyps per patient. No records available for review. Immunizations Immunization Administration Dates Next Due Moderna SARS-CoV-2 Monovalen t Vaccination (12+ YRS) 06/23/2021,12/01/2020,03/24/2020,2020 Social History Tobacco Use Types Packs/Day Years [...] AM CDT Pulse 83 02/11/2022 8:39 AM BICYCLE MESSENGER Temperature 36.6 C (97.8 F) 01/08/2022 8:14 AM BICYCLE MESSENGER Respiratory Rate 19 01/08/2022 8:40 AM BICYCLE MESSENGER Oxygen Saturation 96% 02/11/2022 8:39 AM BICYCLE MESSENGER Inhaled Oxygen Concentration - - Weight 72.1 kg (159 lb) 12/01/2023 8:28 AM CDT Height 154.9 cm (5' 0.98 ) 07/22/2022 11:40 AM C DT Body Mass Index 30.06 07/22/2022 11:40 AM CDT Plan of Treatment Not on file Medical Devices Implanted Type Area Stenciling Machine Tender Device Identifier Shelf Expiration Date Model / Serial / Lot Screws Right: Shoulder Description:RIGHT SHOULDER Procedures Procedure Name Priority Date/Time Associated Diagnosis Comments PA ARTHROCENTESIS ASPIR&/INJ INTERM JT/BURS W/O US Routine 03/08/2024 8:20 AM BICYCLE MESSENGER Arthritis of right wrist SCAN - RADIOLOGY/IMAGING 03/08/2024 8:18 AM BICYCLE MESSENGER SCREENING MAMMOGRAM BILATERAL W BIJAL Schedule Routine, Read Routine (OP Routine) 11/10/2023 7:51 AM CDT Screening mammogram, encounter for DEXA AXIAL SKELETON BONE DENSITY 1 OR MORE SITES Schedule Routine, Read Routine (OP Routine) 11/04/2022 8:08 AM CDT Menopause COLONOSCOPY Routine 01/08/2022 from Last 3 Months or Most Recently Relevant to Health Maintenance Results * PA ARTHROCENTESIS ASPIR&/INJ INTERM JT/BURS W/O US (03/08/2024 8:20 AM BICYCLE MESSENGER) Narrative Tk Ball MD - 03/08/2024 8:20 AM BICYCLE MESSENGER Tk Ball MD 03/08/2024 9:01 AM Medium [...] * SCAN - RADIOLOGY/IMAGING (03/08/2024 8:18 AM BICYCLE MESSENGER) Anatomical Region Laterality Modality Other us Provider [...] age 38, based on guidelines of the [employer] (ACR Practice Parameter for the Performance of Screening and Diagnostic Mammography) and [employer]. For women [...] old F with given history of: menopause Stenciling Machine Tender/Model: [employer] (Formerly [employer]) A (S/N [id number]) CLINICAL INFORMATION: Current height: 60 inches Maximum [...] Blaise Grey M.D. MF: SHILPI Report ID: [id number] Reading Location: [address] Note Blaise Grey MD - 11/04/2022 EXAM DESCRIPTION: DEXA AXIAL SKELETON BONE DENSITY 1 OR MORE SITES REASON FOR STUDY: 67 y/o year old F with given history of: menopause Stenciling Machine Tender/Model: [employer] (Former[employer]) A (S/N [id number]) CLINICAL INFORMATION: Current height: 60 inches Maximum [...] Blaise Grey M.D. MF: SHILPI Report ID: [id number] Reading Location: [place] [address] Nunu Newton MD IMG DXA PROCEDURES Final R esult * COLONOSCOPY (01/08/2022) Scribed Colonoscopy Normal Comment:op note in chart Historical Provider HEALTH MAINTENANCE Final Result from Last 3 Months or Most Recently Relevant to Health Maintenance Insurance [employer] MEDICARE AETNA MEDICARE AETNA MEDICARE Care Teams Job Honer Relationship Specialty Start Date End Date Layton Santos MD [address] [facility] [address] [place], [place] [phone] PCP - General Internal Medicine 06/24/22
--- OUTSIDE RECORDS SUMMARY | 2024-04-07 01:49 | XMS_ITS | Patient Health Summary ---
Author Organization [facility] Address [address] [place] [address] Care Team Providers Care Manager Community Name Role Phone Layton Santos MD Primary Care Provider [phone] Foster Silver MD Unavailable [phone] Note from [facility],non-owned Affiliates and Associated Physician Practices is amultiple site organization consisting of ambulatory clinics and hospital sitesin [place], [place], [place] and [place]. This disclosure is being madepursuant to the Care Everywhere program and may not contain all information available regarding this patient. Last updated 17.[facility] Allergies No known active allergies Medications * Be aware that medications may not be up to date on this document. Alwaysverify current medications with the patient. * [place]-3 Fatty Acids (FISH OIL PO) Take 1,280 mg by mouth at bedtime Takes 2 at bedtime Reasons: SUPPLEMENT * Turmeric (QC TUMERIC COMPLEX PO) Take 1,500 mg by mouth at bedtime Takes 2 at bedtime Reasons: SUPPLEMENT * Cholecalciferol (VITAMIN D3 PO) Take 4,000 Units by mouth at bedtime Reasons: SUPPLEMENT * Biotin 59830 MCG Take 2 (two) tablets by mouth at bedtime Reasons: SUPPLEMENT * Nutritional Supplements (OSAPLEX MK-7 PO) Take 2 tablets by mouth at bedtime Reasons: SUPPLEMENT * oxyCODONE, immediate release, (Roxicodone) 10 MG tablet(Started 02/27/2023) Take 0.5 (one-half) tablet to 1 (one) tablet by mouth every 4 hours as needed for Pain (pain) * omeprazole (PriLOSEC) 20 MG capsule(Started 02/26/2023) Take 1 (one) capsule by mouth once daily for 42 days * polyethylene glycol 3350 (GlycoLax) 17 GM/SCOOP powder(Started 02/27/2023) Take 17 (seventeen) g by mouth once daily as needed for Constipation Reasons: Constipation * acetaminophen (Tylenol) 500 MG tablet Take 1 tablet by mouth every 4 hours as needed for Fever or Pain Maximum allowable Acetaminophen amount = 4 Grams (4000 mg) / 24 hours. Reasons: Pain * Heparin, Porcine, in NaCl (heparinized saline) 1000-0.9 UT/500ML-% infusion (Started 04/08/2023) 5 mL by Intravenous route every 8 hours. Indications: Prevention of Closure of Indwelling Catheter * Sodium Chloride Flush (0.9% NaCl) 0.9 % injection(Started 04/08/2023) 1-30 mL by Intracatheter route every 8 hours. Indications: Fluid and Electrolyte Disturbance * cefadroxil (Duricef) 500 MG capsule(Started 05/12/2023) Take 1 (one) capsule by mouth once daily * celecoxib (CeleBREX) 200 MG capsule(Started 05/26/2023) Take 1 (one) capsule by mouth 2 times daily 5 refills by 05/25/2024 Active Problems Problem Noted Date Diagnosed Date Bacteremia 03/31/2023 Postoperative complication o f skin involving drainage from surgical wound 03/30/2023 Infection of right knee 03/30/2023 Primary osteoarthritis of right knee 08/01/2022 Diverticulitis 10/31/2021 08/01/2022 History of colonic polyps 10/31/20212022 Social History Tobacco Use Types Packs/Day Years [...] Recorded Patient Health Questionnaire-2 Score 0 09/04/2023 [facility] [place] of Occupat ional Health - Occupational Stress [...] place to sleep or slept in a chcf (including now)? No 03/30/2023 Sex and Gender [...] 70.3 kg (155 lb) 04/03/2023 7:32 AM STRETCHING PRESS OPERATOR Height 154.9 cm (5' 1 ) 04/03/2023 7:32 AM STRETCHING PRESS OPERATOR Body Mass Index 29.29 04/03/2023 7:32 AM STRETCHING PRESS OPERATOR Medical Devices Implanted Type Area Die Try Out Worker Device Identifier Shelf Expiration Date Model / Serial / Lot Cmnt Bone Plc R 40gm Grn Implanted:Qty: 1 on 02/26/2023 by Foster Silver MD at [facility] Right: Knee [employer] 07/09/2025 [id number] / / [id number] Tray Tib 75mm Kn Cocr I Beam Implanted:Qty: 1 on 02/26/2023 by Foster Silver MD at [facility] Right: Knee [employer] 10/28/2031 [id number] / / [id number] Cmpnt Fem Kn Rt Cr Cmnt Prm Vngrd Intlk 67.5 Mm Implanted:Qty: 1 on 02/26/2023 by Foster Silver MD at [facility] Right: Knee [employer] 12/27/2032 [id number] / / [id number] Cmpnt Ptlr Std 28mm 3 Pg Kn Ser A Implanted:Qty: 1 on 02/26/2023 by Foster Silver MD at [facility] Right: Knee [employer] 12/19/2027 [id number] / / [id number] Brng [id number] Vngrd Arcm Kn Ant Stab Implanted:Qty: 1 on 02/26/2023 by Foster Silver MD at [facility] Right: Knee [employer] 06/26/2025 [id number] / / [id number] Cmpnt Tibtry Kn Prm Lck Bar Bmt As Mx Implanted:Qty: 1 on 03/31/2023 by Tari Lloyd MD at [facility] Right: Knee [employer] 12/13/2032 [id number] / / [id number] Brng [id number] Vngrd Arcm Kn Ant Stab Implanted:Qty: 1 on 03/31/2023 by Tari Lloyd MD at [facility] Right: Knee [employer] 03/09/2027 [id number] / / [id number] Cmpnt Tibtry Kn Prm Lck Bar Bmt As Mx Implanted:Qty: 1 on 04/02/2023 by Tari Lloyd MD at [facility] Right: Knee [employer] 01/20/2033 [id number] / / [id number] Tibial Bearing 18mm Implanted:Qty: 1 on 04/02/2023 by Tari Lloyd MD at [facility] Right: Knee 09/09/2023 [id number] / / [id number] Procedures * XR KNEE RIGHT 3VW(Performed 04/09/2023) Performed for Aftercare following right knee joint replacement surgery * DIFFERENTIAL MANUAL(Performed 04/06/2023) * COMPREHENSIVE METABOLIC PANEL(Performed 04/06/2023) * CBC W AUTO DIFFERENTIAL(Performed 04/06/2023) * C-REACTIVE PROTEIN(Performed 04/05/2023) * ECHO COMPLETE(Performed 04/03/2023) Performed for Bacteremia * XR CHEST POST PROCEDURE(Performed 04/03/2023) Performed for Infection of right knee (HCC) * CULTURE WOUND+GRAM STAIN(Performed 04/02/2023) Performed for Diagnosis unknown * CULTURE ANAEROBE(Performed 04/02/2023) Performed for Diagnosis unknown * LARYNGEAL MASK AIRWAY(Performed 04/02/2023) * RI DRAIN LOWER LEG DEEP ABSC/HEMATOMA(Performed 04/02/2023) * COMPREHENSIVE METABOLIC PANEL(Performed 04/02/2023) * C-REACTIVE PROTEIN(Performed 04/02/2023) * CBC W AUTO DIFFERENTIAL(Performed 04/02/2023) * CULTURE BLOOD(Performed 04/02/2023) * CULTURE BLOOD(Performed 04/02/2023) * CULTURE BLOOD(Performed 04/01/2023) * CULTURE BLOOD(Performed 04/01/2023) * CULTURE BLOOD(Performed 04/01/2023) * HGB HCT PANEL(Performed 04/01/2023) * CULTURE BLOOD(Performed 04/01/2023) * CULTURE WOUND+GRAM STAIN(Performed 03/31/2023) Performed for Diagnosis unknown * CULTURE ANAEROBE(Performed 03/31/2023) Performed for Diagnosis unknown * CULTURE WOUND+GRAM STAIN(Performed 03/31/2023) Performed for Diagnosis unknown * CULTURE ANAEROBE(Performed 03/31/2023) Performed for Diagnosis unknown * CULTURE WOUND+GRAM STAIN(Performed 03/31/2023) Performed for Diagnosis unknown * CULTURE ANAEROBE(Performed 03/31/2023) Performed for Diagnosis unknown * LARYNGEAL MASK AIRWAY(Performed 03/31/2023) * RI DRAIN LOWER LEG DEEP ABSC/HEMATOMA(Performed 03/31/2023) * CULTURE BLOOD(Performed 03/31/2023) * CULTURE BLOOD(Performed 03/30/2023) * COMPREHENSIVE METABOLIC PANEL(Performed 03/30/2023) * CBC W AUTO DIFFERENTIAL(Performed 03/30/2023) * CULTURE FLUID+GRAM STAIN(Performed 03/30/2023) Performed for Aftercare following right knee joint replacement surgery * CULTURE ANAEROBE(Performed 03/30/2023) Performed for Aftercare following right knee joint replacement surgery * NEURAXIAL BLOCK(Performed 02/26/2023) * RI TOTAL KNEE REPLACEMENT(Performed 02/26/2023) * XR KNEE RIGHT 3VW(Performed 01/27/2023) Performed for Right knee pain, unspecified chronicity * CBC W AUTO DIFFERENTIAL(Performed 01/27/2023) Performed for Preoperative examination * COMPREHENSIVE METABOLIC PANEL(Performed 01/27/2023) Performed for Preoperative examination * EKG 12-LEAD(Performed 01/27/2023) Performed for Preoperative examination Results * XR KNEE RIGHT 3VW (04/09/2023 12:31 PM STRETCHING PRESS OPERATOR) Only the most recent of2 resultswithin the time period is included. Narrative [facility] [address] - 04/09/2023 12:31 PM STRETCHING PRESS OPERATOR Please see progress note in Epic for results. Coleman Jarvis PA-C DIAGNOSTIC IMAGING ORDERABLES [facility] [address] * (ABNORMAL) DIFFERENTIAL MANUAL (04/06/2023 2:26 AM STRETCHING PRESS OPERATOR) Neutrophil % 68 41 - 74 % 04/06/2023 3:32 AM STRETCHING PRESS OPERATOR [facility] Lymphocyte % 18 17 - 47 % 04/06/2023 3:32 AM STRETCHING PRESS OPERATOR [facility] Monocyte % 1(L) 3 - 11 % 04/06/2023 3:32 AM STRETCHING PRESS OPERATOR [facility] Eosinophil % 7 0 - 7 % 04/06/2023 3:32 AM STRETCHING PRESS OPERATOR [facility] Basophil % 1 0 - 2 % 04/06/2023 3:32 AM STRETCHING PRESS OPERATOR [facility] Metamyelocyte % 3(H) 0% % 3:32 AM STRETCHING PRESS OPERATOR [facility] Myelocyte % 2(H) 0% % 04/06/2023 3:32 AM [facility] Neutrophil Absolute 7.41 1.60 - 7.50 x10E9/L 04/06/2023 3:32 AM STRETCHING PRESS OPERATOR [facility] Lymphocyte Absolute 1.96 1.00 - 4.40 x10E9/L 04/06/2023 3:32 AM [facility] Monocyte Absolute 0.11(L) 0.15 - 1.00 x10E9/L 04/06/2023 3:32 AM [facility] Eosinophil Absolute 0.76(H) 0.00 - 0.60 x10E9/L 04/06/2023 3:32 AM [facility] Basophil Absolute 0.11 0.00 - 0.13 x10E9/L 04/06/2023 3:32 AM [facility] RBC Morphology REVIEWED 04/06/2023 3:32 AM [facility] Toxic Changes PRESENT(A) (none) 04/06/2023 3:32 AM [facility] Blood BLOOD SPECIMEN / Unknown Venipuncture / Unknown 04/06/2023 2:26 AM STRETCHING PRESS OPERATOR 04/06/2023 2:47 AM STRETCHING PRESS OPERATOR Joellen Hannah MD LAB - HEMATOLOGY ORD ERABLES Performing Organization Address City/[facility]/ZIP Co de Phone Number [facility] [address] [place] [address] * (ABNORMAL) CBC W AUTO DIFFERENTIAL (04/06/2023 2:26 AM STRETCHING PRESS OPERATOR) Only the most recent of4 resultswithin the time period is included. WBC 10.9(H) 4.0 - 10.7 x10E9/L 04/06/2023 3:32 AM STRETCHING PRESS OPERATOR [facility] RBC Count 2.78(L) 3.90 - 5.20 x10E12/L 04/06/2023 3:32 AM [facility] Hemoglobin 8.0(L) 11.9 - 15.8 g/dL 04/06/2023 3:32 AM [facility] Hematocrit 25.4(L) 34.8 - 46.1 % 04/06/2023 3:32 AM [facility] MCV 91.4 80.0 - 98.0 fL 04/06/2023 3:32 AM [facility] MCH 28.8 26.7 - 33.6 pg 04/06/2023 3:32 AM [facility] MCHC 31.5(L) 31.7 - 36.3 g/dL 04/06/2023 3:32 AM [facility] RDW-CV 13.8 11.3 - 14.8 % 04/06/2023 3:32 AM [facility] Platelet Count 333 150 - 420 x10E9/L 04/06/2023 3:32 AM [facility] MPV 9.7 7.8 - 11.4 fL 04/06/2023 3:32 AM [facility] Blood BLOOD SPECIMEN / Unknown Venipuncture / Unknown 04/06/2023 2:26 AM STRETCHING PRESS OPERATOR 04/06/2023 2:47 AM STRETCHING PRESS OPERATOR Joellen Hannah MD LAB - HEMATOLOGY ORD ERABLES Performing Organization Address City/[facility]/ZIP Co de Phone Number [facility] [address] [place] [address] * (ABNORMAL) COMPREHENSIVE METABOLIC PANEL (04/06/2023 2:26 AM [facility]) Only the most recent of4 resultswithin the time period is included. Glucose 94 70 - 105 mg/dL 04/06/2023 3:07 AM [facility] Sodium 142 136 - 145 mmol/L 04/06/2023 3:07 AM [facility] Potassium 3.8 3.5 - 5.1 mmol/L 04/06/2023 3:07 AM [facility] Chloride 108(H) 98 - 107 mmol/L 04/06/2023 3:07 AM [facility] CO2 26 22 - 29 mmol/L 04/06/2023 3:07 AM [facility] Calcium 8.6 8.4 - 10.4 mg/dL 04/06/2023 3:07 AM [facility] Anion Gap 8 6 - 16 mmol/L 04/06/2023 3:07 AM [facility] BUN 15 7 - 26 mg/dL 04/06/2023 3:07 AM [facility] Creatinine 0.54(L) 0.57 - 1.11 mg/dL 04/06/2023 3:07 AM [facility] Alkaline Phosphatase 120 40 - 150 U/L 04/06/2023 3:07 AM [facility] ALT 19 0 - 55 U/L 04/06/2023 3:07 AM [facility] AST 27 5 - 34 U/L 04/06/2023 3:07 AM [facility] Protein Total 5.6(L) 6.4 - 8.3 gm/dL 04/06/2023 3:07 AM [facility] Albumin 2.3(L) 3.4 - 5.0 gm/dL 04/06/2023 3:07 AM [facility] Bilirubin Total 0.3 0.2 - 1.2 mg/dL 04/06/2023 3:07 AM [facility] eGFR by CKD-EPI >90 >=90 mL/min/1.7 3 m2 04/06/2023 3:07 AM [facility] Blood BLOOD SPECIMEN / Unknown Venipuncture / Unknown 04/06/2023 2:26 AM [facility] 04/06/2023 2:47 AM STRETCHING PRESS OPERATOR Joellen Hannah MD LAB - CHEMISTRY J LUIS SEPULVEDA Performing Organization Address City/[facility]/ZIP Co de Phone Number [facility] [address] [place] [address] * (ABNORMAL) C-REACTIVE PROTEIN (04/05/2023 3:01 AM STRETCHING PRESS OPERATOR) Only the most recent of2 resultswithin the time period is included. C-Reactive Protein 13.20(H) <=0.50 mg/dL 04/05/2023 3:36 AM STRETCHING PRESS OPERATOR [facility] Blood BLOOD SPECIMEN / Unknown Venipuncture / Unknown 04/05/2023 3:01 AM STRETCHING PRESS OPERATOR 04/05/2023 3:18 AM STRETCHING PRESS OPERATOR Joellen Hannah MD LAB - CHEMISTRY J LUIS SEPULVEDA Performing Organization Address [facility] Co de Phone Number [facility] [address] [place] [address] * ECHO COMPLETE (04/03/2023 4:14 PM STRETCHING PRESS OPERATOR) BSA 1.5674888 [id number] m2 [facility] LVOT stroke vol 86.54 mL [facility] stroke vol index 49.06 mL/m2 [facility] LV stroke vol 2D teich 59.412 ml [facility] LV Stroke Index 2D Teich 33.68 mL/m2 [facility] LVIDd 4.31 3.8 - 5.2 cm [facility] IVSd MM 1.068 0.6 - 0.9 cm [facility] LVIDs 2.57 2.2 - 3.5 cm [facility] IVSd 2D 1.281 0.6 - 0.9 cm [facility] LVPWd 1.30 0.6 - 0.9 cm [facility] Fractional Shortening 2D 40 28 - 44 % [facility] LV ESV 2D 23.958 14 - 42 mL [facility] LV ESV index 2D 13.58 8 - 24 mL/m2 [facility] LV EDV 2D 83.37 46 - 106 mL [facility] LV EDV index 2D 47.26 29 - 61 mL/m2 [facility] LVOT diam 2.4 cm [facility] LVOT area 4.42 cm2 [facility] LV RWT 0.604 [facility] PACS IVS/LVPW 0.985 [facility] Fractional Shortening M-Mode 42 28 - 44 % [facility] LV mass m-mode 158.001 67 - 162 g [facility] LV mass index m-mode 89.57 43 - 95 g/m2 [facility] LV mass 2D 206.03 66 - 150 g [facility] LV mass index 2D 116.80 44 - 88 g/m2 [facility] MV E pk josé miguel 119.339 cm/s [facility] F [facility] P[facility] MV A pk josé miguel 93.513 cm/s [facility] P[facility] MV E A ratio 1.28 [facility] MV DT 129 ms [facility] PACS TR pk josé miguel 322.7 cm/s [facility]ACS LVOT pk josé miguel 1.01 m/s [facility] LVOT mn josé miguel 0.66 m/s [facility] LVOT mn grad 2.1 mmHg [facility] LVOT Cardiac Output 17.315 l/min [facility] LVOT Cardiac Index 9.82 l/min/m2 [facility] LA size 4.03 2.7 - 3.8 cm [facility] P[facility] RV-ann basal diam 3.7 2.5 - 4.1 cm [facility] RV-ann longitudinal diam 6.0 5.9 - 8.3 cm [facility] PACS RVIDd 3.0 cm [facility] I PACS AV mn grad 8 mmHg [facility] PACS AV pk grad 14 mmHg [facility]I PACS AV mn josé miguel 1.32 m/s [facility] I PACS AV pk josé miguel 1.88 m/s [facility] I PACS AV VTI 37.055 cm [facility] CV [facility] I PACS LVOT pk grad 4.115 mmHg [facility] PACS LVOT VTI 19.595 cm [facility] I PACS AV area cont VTI 2.3 cm2 [facility] PACS AV area pk josé miguel 2.4 cm2 [facility] C V [facility]I PACS AV Doppler josé miguel index pk josé miguel 0.54 [facility] CV [facility] PACS Dimensionless Index 0.529 [facility] PACS AV PHT 280 ms [facility]SM CV [facility] I PACS AV pk josé miguel regurg 436.98 cm/s [facility] PACS MV pk josé miguel regurg 605.238 cm/s [facility] mn grad 2 mmHg [facility] CV [facility] PACS MV pk grad 6 mmHg [facility] CV [facility]U JI PACS MV mn josé miguel 0.61 m/s [facility] CV [facility] I PACS MV pk josé miguel 118.24 cm/s [facility] CV [facility] I PACS MV PHT 39 ms [facility]SM CV [facility] I PACS MV area PHT 5.69 cm2 [facility] PACS MV area cont eq 3.53 cm2 [facility] VTI 24.498 cm [facility] CV [facility] I PACS MV decel slope 923.004 cm/s2 [facility] C V [facility] PACS sPAP 44.7 mmHg [facility] CV [facility] I PACS RVSP 44.7 mmHg [facility] CV [facility] I PACS RAP 3.0 mmHg [facility] CV [facility] I PACS TR pk grad 42 mmHg [facility] CV [facility]U [facility]I PACS PV pk josé miguel 90.448 cm/s [facility] CV [facility] I PACS PV pk grad 3 mmHg [facility] CV [facility]U JI PACS Aortic arch 3.438 cm [facility] CV F [facility]I PACS Sinus of Valsalva 3.46 cm SS [facility] Sinus of valsalva index 1.96 cm/m2 [facility] IVC size 1.6 cm [facility] CV [facility] I PACS Ao Root Diam Index (2D) 1.963 cm [facility] EF M-Mode 73 % [facility] CV [facility] I PACS AV decel slope regurg 453.32 cm/s2 [facility] PACS LA Size 3.783 cm [facility] CV [facility] I PACS LVIDs index 1.46 1.3 - 2.1 cm/m2 [facility] CV FUJI PACS LV LVIDd index 2.44 2.3 - 3.1 cm/m2 [facility] CV FUJI PACS Anatomical Region Laterality Modality Ultrasound Narrative 04/04/2023 2:42 PM STRETCHING PRESS OPERATOR Left Ventricle: Left ventricle size is normal. Normal wall thickness. Normal systolic function. EF 55-60% Normal wall motion. Normal diastolic function. Mitral Valve: Mild regurgitation. Aortic Valve: Mild to moderate regurgitation. Left Ventricle Left ventricle size is normal. Normal wall thickness. Normal systolic function. EF 55-60% Normal wall motion. Normal diastolic function. Right Ventricle Right ventricle size is normal. Normal systolic function. Left Atrium Left atrium size is normal. Right Atrium Right atrium size is normal. IVC/SVC IVC diameter is less than or equal to 21 mm and decreases greater than 50% during inspiration; therefore the estimated right atrial pressure is normal (~3 mmHg). Mitral Valve Valve structure is normal. No restricted motion. Mild regurgitation. No stenosis. Tricuspid Valve Valve structure is normal. No restricted motion. Trace regurgitation. No stenosis. Aortic Valve Valve structure is trileaflet. No restricted motion. Mild to moderate regurgitation. No stenosis. Pulmonic Valve Valve structure is normal. No restricted motion. No regurgitation. No stenosis. Ascending Aorta Normal sized sinus of Valsalva (aortic root) and ascending aorta. Pericardium No pericardial effusion. Study Details Study quality was adequate. A complete 2D, color Doppler, spectral Doppler and M-mode echocardiogram was performed. The apical, parasternal, subcostal and suprasternal views were obtained. Patient exhibited sinus rhythm. Technical difficulties due to patient supine position and restricted mobility. Procedure Note Paolo Valentine MD - 04/04/2023 Left Ventricle: Left ventricle size is normal. Normal wall thickness.Normal systolic function. EF 55-60% Normal wall motion. Normal diastolicfunction. Mitral Valve: Mild regurgitation. Aortic Valve: Mild to moderate regurgitation. Ali Etemady-Deylamy DO ECHO CUPID * XR CHEST FOR PICC PLMT (Place order AFTER PICC line is inserted) (04/03/2023 2:48 PM STRETCHING PRESS OPERATOR) Anatomical Region Laterality Modality Chest Radiographic Chelsey ging 04/03/2023 3:00 PM STRETCHING PRESS OPERATOR Impressions 04/03/2023 3:01 PM STRETCHING PRESS OPERATOR IMPRESSION: 1. Mild cardiomegaly. 2. Right PICC line which extends to the expected location of the superior vena cava. > Interpreting Provider: Alejandro Antonio MD on 04/03/2023 3:01 PM Narrative 04/03/2023 3:01 PM STRETCHING PRESS OPERATOR PROCEDURE: XR CHEST POST PROCEDURE, DATE/TIME OF EXAM: 04/03/2023 2:58 PM, LOCATION [facility] INDICATION: M00.9: Pyogenic arthritis, unspecified ([facility]) HISTORY: PICC line placement COMPARISON: None PROCEDURE: XR CHEST POST PROCEDURE FINDINGS: A single view of the chest was done. The heart size is enlarged. There is no edema. There is no lung consolidation. There is a right PICC line which extends to the expected location of the superior vena cava. Procedure Note Alejandro Antonio MD - 04/03/2023 PROCEDURE: XR CHEST POST PROCEDURE, DATE/TIME OF EXAM: 04/03/2023 2:58PM, LOCATION [facility] INDICATION: M00.9: Pyogenic arthritis, unspecified ([facility]) HISTORY: PICC line placement COMPARISON: None PROCEDURE: XR CHEST POST PROCEDURE FINDINGS: A single view of the chest was done. The heart size is enlarged. Thereis no edema. There is no lung consolidation. There is a right PICC linewhich extends to the expected location of the superior vena cava. IMPRESSION: 1. Mild cardiomegaly. 2. Right PICC line which extends to the expected location of thesuperior vena cava. > Interpreting Provider: Alejandro Antonio MD on 04/03/2023 3:01 PM Joellen Hannah MD DIAGNOSTIC IMAGING O RDERABLES * CULTURE WOUND+GRAM STAIN (04/02/2023 12:49 PM STRETCHING PRESS OPERATOR) Only the most recent of4 resultswithin the time period is included. Culture No growth ELIZABETH 04/05/2023 3:38 AM STRETCHING PRESS OPERATOR [facility] Gram Stain No polymorphonuclear cells 04/05/2023 3:38 AM [facility] Gram Stain No organisms seen 024 3:38 AM [facility] Microbiology ENTIRE KNEE REGION / Unknown 04/02/2023 12:49 PM STRETCHING PRESS OPERATOR 04/02/2023 1:28 PM STRETCHING PRESS OPERATOR Narrative [facility] - 04/05/2023 3:38 AM STRETCHING PRESS OPERATOR Surgical Description: Right Knee Tari Lloyd MD LAB - MICROBIOLOGY ORDERABLES Performing Organization Address [facility] de Phone Number [facility] [address] [place] [address], [facility] [phone] * CULTURE ANAEROBE (04/02/2023 12:49 PM STRETCHING PRESS OPERATOR) Only the most recent of5 resultswithin the time period is included. Culture No anaerobic organisms isolated ELIZABETH 04/16/2023 10:53 AM [facility] Microbiology ENTIRE KNEE REGION / Unknown 04/02/2023 12:49 PM STRETCHING PRESS OPERATOR 04/02/2023 1:28 PM STRETCHING PRESS OPERATOR Narrative [facility] - 04/16/2023 10:53 AM STRETCHING PRESS OPERATOR Surgical Description: Right Knee No growth after 2 weeks. Tari Lloyd MD LAB - MICROBIOLOGY ORDERABLES Performing Organization Address [facility] Phone Number [facility] [address] [place] [address], [facility] [phone] * LARYNGEAL [employer] (04/02/2023 12:24 PM STRETCHING PRESS OPERATOR) Narrative Lakesha Lala APRN-CRNA - 04/02/2023 12:24 PM STRETCHING PRESS OPERATOR Lakesha Lala APRN-CRNA 04/02/2023 12:25 PM LMA Placement Procedure/LDA Note: Patient Location: OR. Procedure: LMA. Pretreatment: 100% O2 Induction: standard IV Patient position: sniffing and supine. Mask Ventilation: not attempted Type: LMA Size: 4 Number of Attempts: 1. Placement verified by: direct visualization, CO2 monitor, bilateral breath sounds and chest auscultation Dentition unchanged? Yes Staff Section Anesthesia Provider: Lakesha Lala APRN-BREAD DISTRIBUTOR, Performed the procedure Additional Comments: Atraumatic placement. No damage to teeth, gums, mouth, lip. Morales Mercer DO GENERAL ANESTHESIA O RDERABLES * CULTURE BLOOD (04/02/2023 2:39 AM STRETCHING PRESS OPERATOR) Only the most recent of8 resultswithin the time period is included. Culture No growth day 5 ELIZABETH 04/07/2023 5:01 AM STRETCHING PRESS OPERATOR [facility] Blood PERIPHERAL BLOOD / Unknown Venipuncture / Unknown 04/02/2023 2:39 AM STRETCHING PRESS OPERATOR 04/02/2023 3:00 AM STRETCHING PRESS OPERATOR Ashley Wheatley MD LAB - MICROBIOLOGY O RDERABLES Performing Organization Address City/[facility]/ZIP Co de Phone Number [facility] [address] [place] [phone] * (ABNORMAL) HGB HCT PANEL (04/01/2023 4:04 AM STRETCHING PRESS OPERATOR) Hemoglobin 8.7(L) 11.9 - 15.8 g/dL 04/01/2023 4:39 AM STRETCHING PRESS OPERATOR [facility] Hematocrit 26.9(L) 34.8 - 46.1 % 04/01/2023 4:39 AM STRETCHING PRESS OPERATOR [facility] Blood BLOOD SPECIMEN / Unknown Venipuncture / Unknown 04/01/2023 4:04 AM STRETCHING PRESS OPERATOR 04/01/2023 4:26 AM STRETCHING PRESS OPERATOR Tari Lloyd MD LAB - HEMATOLOGY OR DERABLES [facility] [address] [place] [address] * LARYNGEAL [employer] (03/31/2023 12:32 PM STRETCHING PRESS OPERATOR) Narrative Thomas Garrido APRN-BREAD DISTRIBUTOR - 03/31/2023 12:32 PM STRETCHING PRESS OPERATOR Thomas Garrido APRN-CRNA 03/31/2023 12:32 PM LMA Placement Procedure/LDA Note: Patient Location: OR. Procedure: LMA. Pretreatment: 100% O2 Induction: standard IV Patient position: sniffing and supine. Mask Ventilation: not attempted Type: gel LMA Size: 3 Placement verified by: direct visualization, CO2 detector, bilateral breath sounds, chest auscultation and CO2 monitor Dentition unchanged? Yes Staff Section Anesthesia Provider: Jigna Meraz Performed the procedure Anselmo Gutierrez MD GENERAL ANESTHESIA O RDERABLES * (ABNORMAL) CULTURE FLUID+GRAM STAIN (03/30/2023 12:46 PM STRETCHING PRESS OPERATOR) Culture Heavy Staphylococcus aureus(AA) ELIZABETH 04/03/2023 2:21 AM [facility] Comment:Staphylococcus aureu s methicillin-susceptible (MSSA) detected by penicillin binding protein immunoassay. Gram Stain Rare Polymorphonuclear cells(AA) 04/03/2023 2:21 AM [facility] Gram Stain Light Gram-positive cocci(AA) 04/03/2023 2:21 AM [facility] Fluid BURSA FLUID SPECIMEN / Unknown Collection / Unknown 03/30/2023 12:46 PM STRETCHING PRESS OPERATOR 03/30/2023 1:46 PM STRETCHING PRESS OPERATOR Narrative Organism Antibiotic Method Susceptibility Staphylococcus aureus Cefazolin ELIZABETH Susceptible Staphylococcus aureus Clindamycin ELIZABETH 0.25 ug/mL: Susceptible Staphylococcus aureus Doxycycline ELIZABETH <=0.5 ug/mL: Susceptible Staphylococcus aureus Inducible Clindamy beulah Resistance ELIZABETH NEG ug/mL: Neg Staphylococcus aureus Oxacillin ELIZABETH 1 ug/mL: Susceptible Staphylococcus aureus Trimethoprim-sulfa methox azole ELIZABETH <=10 ug/mL: Susceptible Comment: Staphylococcus sensitivity to oxacillin predicts susceptibility for nafcillin, ampicillin/sulbactam, amoxicillin/clavulanate, piperacillin/tazobactam, all cephalosporins (except ceftazidime, ceftazidime/avibactam, ceftolozane/tazobactam), and all carbapenems. Refugio Ibarra CHUCKING MACHINE SET UP OPERATOR TOOL-LIDDER LAB - ELIZABETH ROBIOLOGY ORDERABLES [facility] [address] [place] [address], [facility] [phone] * Neuraxial Block (02/26/2023 9:52 AM STRETCHING PRESS OPERATOR) Narrative Sulema Hightower DO - 02/26/2023 9:52 AM STRETCHING PRESS OPERATOR Thomas Garrido APRN-CRNA 02/26/2023 9:52 AM Neuraxial Block Note Pre-Procedure: Procedure Name: Neuraxial Block Patient Location: OR Anticoagulation/ Anti-thrombosis status confirmed? Yes Monitors: continuous pluse ox Patient Condition: sedated, meaningful contact maintained throughout procedure Procedure: Block Type: Spinal Prep: Betadine Approach: midline Spinal Block: Needle Type: spinal needle Needle Gauge: 25 Needle Length: 90 mm Placement Site: L3-4 Number of Attempts: 1 Degree of difficulty: none Procedure Tolerance: tolerated well Staff: Anesthesia Provider: Thomas Garrido APRN-CRNA - performed the procedure Sulema Hightower DO GENERAL ANESTHESIA O RDERABLES * EKG 12-LEAD (01/27/2023 10:16 AM STRETCHING PRESS OPERATOR) Ventricular Rate 67 BPM [facility] Atrial Rate 67 BPM [facility] P-R Interval 178 ms [facility] QRS Duration ms 80 ms [facility] Q-T Interval ms 398 ms [facility] QTC Calculation (Bezet) 420 ms [facility] Calculated P [place] 36 degrees [facility] Calculated R [place] 35 degrees [facility] Calculated T [place] -20 degrees [facility] Interpretation EKG Normal sinus rhythm Cannot rule out Inferior infarct , age undetermined No previous ECGs available Confirmed by GARRISON ARAYA, PAOLO BEST ([id number]) on 01/28/2023 9:32:07 PM [facility] 01/27/2023 10:1 6 AM STRETCHING PRESS OPERATOR 01/28/2023 9:32 PM [facility] Sulema Hightower DO ECG ORDERABLES [facility] Care Teams Manager Community Relationship Specialty Start Date End Date Layton Santos MD [address] [facility] [address] [place] [address] PCP - General Internal Medicine 07/29/22 [place] [address] [address] Surgeon Orthopedic Surgery 03/30/23
[2024-04-07 10:41] VITALS: BP 146/97; PULSE 95; RESP 16; TEMP 36; O2SAT 97
[2024-04-07] MEDS: LACTATED RINGERS 1,000 ML 150 ML IV CONT (10:53)
--- NOTE | 2024-04-07 10:55 | WPDANESEPPF ---
Anes - Initial Pre Proc Eval Procedure: Operation Date: 04/07/24 12:30 Proposed Procedures p Esophagogastroduodenoscopy & Colonoscopy - Shelton Adams MD Date/Time: 04/07/24 10:55 Surgeon: Shelton Adams MD Pre Op Diagnosis: melena, fecal abnormalities Patient Data Age: 68 Gender: F Height: 1.55 m Weight: 72.1 kg Last Vital Signs Temp 96.8 F L 04/07/24 10:41 Pulse 95 04/07/24 10:41 Resp 16 04/07/24 10:41 BP 146/97 H 04/07/24 10:41 Pulse Ox 97 04/07/24 10:41 O2 Del Method Room Air 04/07/24 10:41 Allergies Allergy/AdvReac Type Severity Reaction Status Date / Time No Known Allergies Allergy Verified 04/07/24 10:39 Home Medications ?Medication ?Instructions ?Recorded ?Confirmed ?Type MK-7 90 mcg BYMOUTH 2XD #180 tabs 06/12/22 04/07/24 Rx Ultimate [place] BYMOUTH .qday 06/12/22 01/21/24 History biotin 5 mg capsule 10 mg PO DAILY 06/12/22 04/07/24 History cholecalciferol (vitamin D3) 50 100 mcg PO DAILY 06/12/22 04/07/24 History mcg (2,000 unit) capsule tramadol 50 mg tablet 50 mg PO Q6H PRN pain 06/12/22 03/25/24 History turmeric root extract 500 mg tablet 1,500 mg PO BID 06/12/22 04/07/24 History celecoxib 200 mg capsule (Celebrex) 200 mg PO BID PRN pain 12/30/23 03/25/24 History Patient hx anesthesia problems: none Family hx anesthesia problems: none Results Review: All pre-operative results and documents have been reviewed as part of the pre-operative evaluation. [facility] Past Medical History Medical History Hematochezia Diverticulitis BMI 32.0-32.9,adult On halfway drug therapy Encounter for Medicare annual wellness exam BMI 30.0-30.9,adult DJD (degenerative joint disease), multiple sites Tricompartment osteoarthritis of right knee Post-menopausal Breast cancer screening Hx of colonic polyps BMI 31.0-31.9,adult Pain and swelling of right wrist Right shoulder pain Encounter to establish care Surgical History Surgical History Status post total right knee replacement Status post bilateral hernia repair H/O repair of rotator cuff Family History Family History Father Malignant neoplasm of prostate Hypertension Mother Heart disease Social History Social History Smoking status: Never smoker Second hand tobacco smoke exposure: No Drinks per week: 3 Lack of Transportation: No Lack of Food: Never True Current Housing: I Have Housing Concerned About Future Housing: No Difficulty Paying Gas/Electric Bills: No Difficulty Paying for Meds: No Currently Unemployed: No Education: Master's Degree or Higher Living arrangements: with family Additional living arrangements comments: Occupation/Education: retired Gender identity (if verbalized by the patient): Female Spiritual care concerns: No Anes - Eval Final PreProcedure Day of Procedure 04/07/24 10:55 Patient weight: obese Lungs: normal air movement Airway: Mallampati scale class II Neurological: alert and oriented Last oral intake: >/= 8 hours ASA classification: II Emergent: no Anesthetic plan: proceed Anesthesia type and monitoring: general GIVS and standard monitoring Results Review: All pre-operative results and documents have been reviewed as part of the pre-operative evaluation. Pt w BMI 30, active w cycling, stationary bike, no cp or sob. Informed Consent: The patient's anesthetic plan and its attendant risks and benefits were discussed with the patient/family/POA. Questions were solicited and answers provided to the satisfaction of the patient/family/POA.
--- NOTE | 2024-04-07 11:00 | PM.HPGS ---
History of Present Illness History of Present Illness Consent: Risks, benefits, and alternatives have been discussed and questions answered. Patient agrees to proceed with procedure. Chief complaint: melena, fecal abnormalities Narrative: Alisha Leavitt is a 68 year old female here for egd and colonoscopy, intermittent episode of mucus/blood in stool for last 6 years that has been coming every 2 years, treated with abx- last time did not help but improved with budesonide. Last colonoscopy 2 years ago with hyperplastic polyp, 12/2023 CT scan possible thickening of rectum Review of Systems Review of Systems: All systems reviewed & are unremarkable except as noted in HPI and below PMFSH Past Medical History Medical History Hematochezia Diverticulitis BMI 32.0-32.9,adult On director asset drug therapy Encounter for Medicare annual wellness exam BMI 30.0-30.9,adult DJD (degenerative joint disease), multiple sites Tricompartment osteoarthritis of right knee Post-menopausal Breast cancer screening Hx of colonic polyps BMI 31.0-31.9,adult Pain and swelling of right wrist Right shoulder pain Encounter to establish care Surgical History Surgical History Status post total right knee replacement Status post bilateral hernia repair H/O repair of rotator cuff Family History Family History Father Malignant neoplasm of prostate Hypertension Mother Heart disease Social History Social History Smoking status: Never smoker Second hand tobacco smoke exposure: No Drinks per week: 3 Lack of Transportation: No Lack of Food: Never True Current Housing: I Have Housing Concerned About Future Housing: No Difficulty Paying Gas/Electric Bills: No Difficulty Paying for Meds: No Currently Unemployed: No Education: Master's Degree or Higher Living arrangements: with family Additional living arrangements comments: Occupation/Education: retired Gender identity (if verbalized by the patient): Female Spiritual care concerns: No Meds Home Medications and Allergies Home Medications ?Medication ?Instructions ?Recorded ?Confirmed ?Type MK-7 90 mcg BYMOUTH 2XD #180 tabs 06/12/22 04/07/24 Rx Ultimate [place] BYMOUTH .qday 06/12/22 01/21/24 History biotin 5 mg capsule 10 mg PO DAILY 06/12/22 04/07/24 History cholecalciferol (vitamin D3) 50 100 mcg PO DAILY 06/12/22 04/07/24 History mcg (2,000 unit) capsule tramadol 50 mg tablet 50 mg PO Q6H PRN pain 06/12/22 03/25/24 History turmeric root extract 500 mg tablet 1,500 mg PO BID 06/12/22 04/07/24 History celecoxib 200 mg capsule (Celebrex) 200 mg PO BID PRN pain 12/30/23 03/25/24 History Allergies Allergy/AdvReac Type Severity Reaction Status Date / Time No Known Allergies Allergy Verified 04/07/24 10:39 Vital Signs Vital Signs - 24 hr 04/07/24 10:41 Temperature 96.8 F L Pulse Rate 95 Respiratory Rate 16 Blood Pressure 146/97 H Pulse Oximetry 97 Oxygen Delivery Room Air Exam Const: General: comfortable and no acute distress HENMT: Face/Nose/Sinus: Normal nares present Eyes: General: appearance normal, both eyes and all related structures Neck: Neck: no JVD Resp: Auscultation: clear to auscultation bilaterally Cardio: Rate: regular rate Rhythm: regular rhythm GI: Inspection: non-distended GI Palp: Yes Soft to palpation Skin: General skin exam: normal color Neuro: General: gait normal Speech: normal speech Extrem: General: normal to inspection Psych: Mental Status: mental status grossly normal Assessment and Plan Assessment and plan (1) Hematochezia: Code(s): K92.1 - Melena Status: Acute Assessment and Plan: colonoscopy ? proctitis (2) Elevated fecal calprotectin: Code(s): R19.5 - Other fecal abnormalities Status: Acute (3) Hx of colonic polyps: Code(s): Z86.010 - Personal history of colon polyps Status: Acute
--- NOTE | 2024-04-07 11:12 | SUR.OPER ---
EGD ended at 1108, colon began at 1112.
[2024-04-07 11:23] VITALS: BP 94/63; PULSE 61; RESP 20; O2SAT 98
[2024-04-07 11:33] VITALS: BP 102/65; PULSE 58; RESP 20; O2SAT 97
[2024-04-07 11:43] VITALS: BP 115/81; PULSE 72; RESP 20; O2SAT 100
== END 2024-04-07 12:00 | disposition home or self-care (01) ==
PROVIDERS: PCP Internal Medicine; Referring Provider Nurse Practitioner Family; Visit Provider Internal Medicine Gastroenterology
PROC: 0DJ08ZZ Inspection of Upper Intestinal Tract, Via Natural or Artificial Opening Endoscopic (ICD-10-PCS; CPT 45378; principal; 2024-04-07 12:30)
DX: K57.30 Diverticulosis of large intestine without perforation or abscess without bleeding (principal); K64.8 Other hemorrhoids; Z86.0100 Personal history of colon polyps, unspecified; E66.9 Obesity, unspecified; Z68.30 Body mass index [BMI] 30.0-30.9, adult
CPT/HCPCS: 45380; 43235; 88305; J2003; J2704; J7120

== ENCOUNTER 2024-04-13 11:12 | Outpatient (CLI) | payer MEDICARE, SELFPAY ==
--- NOTE | ~2024-04-13 | CT_ITS ---
EXAMINATION: CT chest abdomen pelvis wo con DATE: 04/13/2024 11:33 INDICATION: Solitary pulmonary nodule at the lingula on prior imaging TECHNIQUE: Computed tomography (CT) of the chest, abdomen, and pelvis was performed without intraveno us contrast. Automated exposure control and iterative reconstruction technique were employed. The dos e-length product was 748.95 mGy-cm. COMPARISON: CT dated 12/30/2023 FINDINGS: CHEST CT: 2 mm calcified right upper lobe nodule consistent with old granulomatous disease. Persistent linear b ands of discoid atelectasis in the lingula and anterobasilar segment of the left lower lobe along eit her side of the major fissure with linear configuration best appreciated on the sagittal reconstructe d images which results in the artifactual appearance of a pulmonary nodule in the axial plane. No oth er suspicious noncalcified pulmonary nodules identified. No pulmonary edema or pleural effusion. Hear t size is normal. No pericardial effusion. Thoracic aorta is normal in caliber. No pathologically enl arged thoracic lymphadenopathy. Severe thoracic spondylosis. Chronic mild anterior wedging at T7-T9 a nd at T11 and T12. ABDOMEN/PELVIS CT: Liver, gallbladder, spleen, pancreas, bilateral adrenal glands and kidneys are normal. Extensive scat tered diverticulosis most prominent along the descending and sigmoid colon without adjacent inflammat ory stranding to suggest diverticular colitis. Small bowel and appendix are normal. Partially decompr essed bladder, the anteverted uterus and bilateral adnexa are unremarkable. Small fat-containing umbi lical hernia. No free intraperitoneal gas or fluid. No pathologically enlarged abdominal or pelvic ly mphadenopathy. Mild lumbar levocurvature with severe spondylosis. Moderate bilateral sacroiliac osteo arthritis. IMPRESSION: 1. No significant interval change in 2 linear bands of discoid atelectasis/scarring at the lingula an d adjacent basilar left lower lobe bladder can't for the artifactual appearance of a pulmonary nodule on prior CT. No suspicious pulmonary nodules identified. 2. Extensive colonic diverticulosis. No acute intra-abdominal/pelvic process. Reviewed, dictated and finalized at location B. R RESOURCE MANAGER IMPRESSION: 1. No significant interval change in 2 linear bands of discoid atelectasis/scar ring at the lingula and adjacent basilar left lower lobe bladder can't for the artifactual appearance of a pulmonary nodule on prior CT. No suspicious pulmona ry nodules identified. 2. Extensive colonic diverticulosis. No acute intra-abdominal/pelvic process.
== END 2024-04-13 11:13 | disposition home or self-care (01) ==
LOC: MICIMG 11:13
PROVIDERS: PCP Internal Medicine; Visit Provider Internal Medicine
DX: R91.1 Solitary pulmonary nodule (principal); J98.11 Atelectasis; M47.814 Spondylosis without myelopathy or radiculopathy, thoracic region; M48.54XA Collapsed vertebra, not elsewhere classified, thoracic region, initial encounter for fracture
CPT/HCPCS: 71250; 74176

== ENCOUNTER 2024-09-05 10:10 | Outpatient (CLI) | payer MEDICARE, SELFPAY ==
--- NOTE | ~2024-09-05 | US_ITS ---
US abdomen complete EXAMINATION: US Abdomen Complete INDICATION: Elevated liver enzymes PROCEDURE: Realtime High Resolution abdomen ultrasound. COMPARISON: No prior studies for comparison FINDINGS: There is a 6 mm gallbladder polyp. No gallstones. Common bile duct measures 6 mm. Liver echotexture within normal limits without focal mass. Pancreas within normal limits. Pancreati c tail is obscured by bowel gas. Spleen is unremarkeable. Renal echotexture is within normal limits bilaterally without hydronephrosis, contour deforming mass or renal stone. Right kidney measures 8.6 cm. Left kidney measures 9.7 cm. Visualized aspects of the aorta and IVC are within normal limits. Portal vein is patent. No sonograph ic Rapp's sign indicated by the technologist. IMPRESSION: 1: Gallbladder polyp measuring 6 mm. Reviewed, dictated and finalized at location B.
== END 2024-09-05 10:11 | disposition home or self-care (01) ==
LOC: MICIMG 10:10
PROVIDERS: PCP Internal Medicine; Visit Provider Internal Medicine
DX: K82.4 Cholesterolosis of gallbladder (principal); R74.8 Abnormal levels of other serum enzymes
CPT/HCPCS: 76700

== ENCOUNTER 2024-10-04 12:09 | Outpatient (CLI) | payer MEDICARE, SELFPAY ==
--- OUTSIDE RECORDS SUMMARY | 2024-10-04 12:13 | XMS_ITS | Clinical Summary ---
Author Organization [facility] Address [address] [place] [address] Care Team Providers Care Property Appraiser Name Role Phone Layton Santos MD Primary Care Provider [phone] Allergies No known active allergies Medications docosahexaenoic acid/epa (FISH OIL ORAL) Take by mouth Active UNABLE TO FIND Med Name: Tumeric oral Active cholecalciferol , vitamin D3, (VITAMIN D3 ORAL) Take by mouth Active VITAMIN K2 ORAL Take by mouth Active BIOTIN ORAL Take by mouth Active acetaminophen (TYLENOL) 500 mg tablet Take 1 tablet (500 mg total) by mouth every 4 (four) hours as needed Active omeprazole (PriLOSEC) 20 mg capsule Take 1 capsule (20 mg total) by mouth daily 02/26/2023 Active Hospital, Clinic, or Other Facility Administered Medication Ordered Dose Route Frequency Start Date End Date Status lidocaine (XYLOCAINE) 10 mg/mL (1 %) injection 1 mLIndications:Admi nistration of Local Anesthesia 1 mL One-Time Injection 09/27/2024 09/27/2024 Ended methylPREDNISolone acetate (DEPO-medrol) injection 40 mgIndications:Arth ritis of right wrist 40 mg intra-artic One-Time Injection 09/27/2024 09/27/2024 Ended Active Problems Problem Noted Date Diagnosed Date Bacteremia 03/31/2023 Infection of right knee 03/30/2023 Postoperative complication o f skin involving drainage from surgical wound 03/30/2023 Primary osteoarthritis of right knee 08/01/2022 Diverticulitis 10/31/2021 Assessment & Plan (02/11/2022 9:00 AM NUCLEAR PLANT INSTRUMENT TECHNICIAN): At the end of September 2021 patient [...] abdominal discomfort. Her last colonoscopy was in [place] in October 2019 and per patient it [...] 10/31/2021 Assessment & Plan (02/11/2022 8:48 AM NUCLEAR PLANT INSTRUMENT TECHNICIAN): Per patient colonoscopy in 2015 in [place] with polyps removed. Repeat colonoscopy October 2019 in [place] with no polyps per patient. No records available for review. Colonoscopy December of 2021 as above, 1 benign polyp removed. -repeat colonoscopy December 2026 Assessment & Plan (10/31/2021 11:42 AM CDT): Per patient colonoscopy in 2015 in [place] with polyps removed. Repeat colonoscopy October 2019 in [place] with no polyps per patient. No records available for review. Encounters Date Type Department Care Team Description 09/27/2024 8:20 AM CDT Office Visit [facility] Orthopaedic Surgery [address] [place] [address] [place] [address] Tk Ball MD Arthritis of right wrist (Primary Dx) 09/27/2024 Orders Only MENDEZ OS HAND/WRIST Scanning, Provider 07/26/2024 8:40 AM CDT Office Visit [facility] Orthopaedic Surgery [address] [place] [address] [place] [address] Tk Ball MD Arthritis of right wrist (Primary Dx) 07/26/2024 Orders Only MENDEZ OS HAND/WRIST Scanning, Provider from Last 3 Months Immunizations Immunization Administration [...] AM CDT Pulse 83 02/11/2022 8:39 AM NUCLEAR PLANT INSTRUMENT TECHNICIAN Temperature 36.6 C (97.8 F) 01/08/2022 8:14 AM NUCLEAR PLANT INSTRUMENT TECHNICIAN Respiratory Rate 19 01/08/2022 8:40 AM NUCLEAR PLANT INSTRUMENT TECHNICIAN Oxygen Saturation 96% 02/11/2022 8:39 AM NUCLEAR PLANT INSTRUMENT TECHNICIAN Inhaled Oxygen Concentration - - Weight 72.1 kg (159 lb) 09/27/2024 8:45 AM CDT Height 152.4 cm (5') 09/27/2024 8:45 AM CDT Body Mass Index 31.05 09/27/2024 8:45 AM CDT Plan of Treatment Health Maintenance [...] 03/24/2020, Additional history exists Influenza Vaccine (#1) 2024 Osteoporosis Screening-Bone Density Scan 11/04/2024 11/04/2022 Breast Cancer Screening-Mammogram 11/09/2024 024, 11/04/2022 Colon Cancer Screening-Colonoscopy 01/09/20322021, 01/08/2022 Medical Devices Implanted Type Area Wire Galvanizer Device Identifier Shelf Expiration Date Model / Serial / Lot Screws Right: Shoulder Description:RIGHT SHOULDER Procedures Procedure Name Priority Date/Time Associated Diagnosis Comments [place] ARTHROCENTESIS ASPIR&/INJ INTERM JT/BURS W/O US Routine 09/27/2024 8:20 AM CDT Arthritis of right wrist SCAN - RADIOLOGY/IMAGING 09/27/2024 [place] ARTHROCENTESIS ASPIR&/INJ INTERM JT/BURS W/O US Routine 07/26/2024 8:40 AM CDT Arthritis of right wrist SCAN - RADIOLOGY/IMAGING 07/26/2024 SCREENING MAMMOGRAM BILATERAL W BIJAL Schedule Routine, Read Routine (OP Routine) 11/10/2023 7:51 AM CDT Screening mammogram, encounter for DEXA AXIAL SKELETON BONE DENSITY 1 OR MORE SITES Schedule Routine, Read Routine (OP Routine) 11/04/2022 8:08 AM CDT Menopause HM COLONOSCOPY Routine 01/08/2022 from Last 3 Months or Most Recently Relevant to Health Maintenance Results * MN ARTHROCENTESIS ASPIR&/INJ INTERM JT/BURS W/O US (09/27/2024 8:20 AM CDT) Narrative Tk Ball MD - 09/27/2024 8:20 AM CDT Tk Ball MD 09/27/2024 9:21 AM Medium Joint Injection: R radiocarpal Performed [...] ORDERABLES Final Result * SCAN - RADIOLOGY/IMAGING (09/27/2024) Anatomical Region Laterality Modality Other us Provider Scanning Final Result * [place] ARTHROCENTESIS ASPIR&/INJ INTERM JT/BURS W/O US (07/26/2024 8:40 AM CDT) Narrative Tk Ball MD - 07/26/2024 8:40 AM CDT Tk Ball MD 07/26/2024 10:08 AM Medium Joint Injection: R radiocarpal Performed [...] ORDERABLES Final Result * SCAN - RADIOLOGY/IMAGING (07/26/2024) Anatomical Region Laterality Modality Other us Provider [...] age 38, based on guidelines of the [place] [employer] (ACR Practice Parameter for the Performance of Screening and Diagnostic Mammography) and [place] [employer]. For women [...] old F with given history of: menopause Wire Galvanizer/Model: SocialDial A (S/N [id number]) CLINICAL INFORMATION: Current height: 60 inches Maximum [...] Blaise Grey M.D. MF: SHILPI Report ID: [id number] Reading Location: [id number] [facility] Note Blaise Grey MD - 11/04/2022 EXAM DESCRIPTION: DEXA AXIAL SKELETON BONE DENSITY 1 OR MORE SITES REASON FOR STUDY: 67 y/o year old F with given history of: menopause Wire Galvanizer/Model: SocialDial A (S/N [id number]) CLINICAL INFORMATION: Current height: 60 inches Maximum [...] Blaise Grey M.D. MF: SHILPI Report ID: [id number] Reading Location: [id number] Nunu Newton MD IMG DXA PROCEDURES Final R esult * HM COLONOSCOPY (01/08/2022) Scribed HM Colonoscopy Normal Comment:op note in chart Historical Provider HEALTH MAINTENANCE Final Result from Last 3 Months or Most Recently Relevant to Health Maintenance Insurance TNA MEDICARE AETNA MEDICARE AETNA MEDICARE Care Teams Property Appraiser Relationship Specialty Start Date End Date Layton Santos MD [address] [facility] [address] [place] [address] PCP - General Internal Medicine 06/24/22
--- OUTSIDE RECORDS SUMMARY | 2024-10-04 12:13 | XMS_ITS | Clinical Summary ---
Author Organization [facility] Me[facility] Address [address] [place] [address] Care Team Providers Care Appeals Referee Name Role Phone Layton Santos MD Primary Care Provider [phone] Foster Silver MD Unavailable [phone] Source Comments [facility],non-owned Affiliates and Associated Physician Practices is amultiple site organization consisting of ambulatory clinics and hospital sitesin [place], [place], [place] and [place]. This disclosure is being madepursuant to the Care Everywhere program and may not contain all information available regarding this patient. Last updated 17.[facility] Allergies No known active allergies Medications * Be aware that medications may not be up to date on this document. Alwaysverify current medications with the patient. Ringling-3 Fatty Acids (FISH OIL PO)Indications: SUPPLEMENT Take 1,280 mg by mouth at bedtime Takes 2 at bedtime Reasons: SUPPLEMENT Active Turmeric (QC TUMERIC COMPLEX PO)Indications: SUPPLEMENT Take 1,500 mg by mouth at bedtime Takes 2 at bedtime Reasons: SUPPLEMENT Active Cholecalciferol (VITAMIN D3 PO)Indications: SUPPLEMENT Take 4,000 Units by mouth at bedtime Reasons: SUPPLEMENT Active Biotin 24589 MCGIndications: SUPPLEMENT Take 2 (two) tablets by mouth at bedtime Reasons: SUPPLEMENT Active Nutritional Supplements (OSAPLEX MK-7 PO)Indications: SUPPLEMENT Take 2 tablets by mouth at bedtime Reasons: SUPPLEMENT Active oxyCODONE, immediate release, (Roxicodone) 10 MG tabletIndicatio ns:Acute Pain Take 0.5 (one-half) tablet to 1 (one) tablet by mouth every 4 hours as needed for Pain (pain) 30 tablet 4 Active Additional Information Patient not taking.Reported on 03/30/2023 omeprazole (PriLOSEC) 20 MG capsuleIndicati ons:Heartburn Take 1 (one) capsule by mouth once daily for 42 days 42 capsule 4 Active polyethylene glycol 3350 (GlycoLax) 17 GM/SCOOP powderIndicatio ns:Constipation Take 17 (seventeen) g by mouth once daily as needed for Constipation Reasons: Constipation 4 Active acetaminophen (Tylenol) 500 MG tabletIndicatio ns:Pain Take 1 tablet by mouth every 4 hours as needed for Fever or Pain Maximum allowable Acetaminophen amount = 4 Grams (4000 mg) / 24 hours. Reasons: Pain Active Heparin, Porcine, in NaCl (heparinized saline) 1000-0.9 UT/500ML-% infusionIndicat ions:Patency Maintenance of Indwelling Catheter 5 mL by Intravenous route every 8 hours. Indications: Prevention of Closure of Indwelling Catheter 4 Active Sodium Chloride Flush (0.9% NaCl) 0.9 % injectionIndica tions:Fluid and Electrolyte Disturbance 1-30 mL by Intracatheter route every 8 hours. Indications: Fluid and Electrolyte Disturbance 4 Active cefadroxil (Duricef) 500 MG capsule Take 1 (one) capsule by mouth once daily 4 Active celecoxib (CeleBREX) 200 MG capsule Take 1 (one) capsule by mouth 2 times daily 60 capsule 5 4 Active Active Problems Problem Noted Date Diagnosed [...] Plan: Per patient colonoscopy in 2015 in [place] with polyps removed. Repeat colonoscopy October 2019 in [place] with no polyps per patient. No records [...] Recorded Patient Health Questionnaire-2 Score 0 09/04/2023 [facility] Occup[facility] ional [facility] - Occupational Stress [...] place to sleep or slept in a intermediate (including now)? No 03/30/2023 Comments No Sex and Gender Information Value Date Recorded Sex Assigned at Not on file Legal Sex Female 11:10 AM CDT Gender Identity Not on file [...] 70.3 kg (155 lb) 04/03/2023 7:32 AM [facility] Height 154.9 cm (5' 1) 04/03/2023 7:32 AM [facility] Body Mass Index 29.29 04/03/2023 7:32 AM [facility] Plan of Treatment Health Maintenance Due Date [...] 06/12/2003 ZOSTER VACCINE (1 of 2) 06/12/2003 COVID-19 VACCINE (7 - 2023- season) 2023 12/10/2022, 12/03/2021, 06/23/2021, Additional history exists DEPRESSION SCREENING 02/10/2024 09/08/2023 MEDICARE AWV CALENDAR YEAR 2024 INFLUENZA VACCINE (#1) 2024 12/10/2022, 2021 MAMMOGRAM 11/04/2024 11/04/2022, 11/04/2022 SCREENING FOR DIABETES 04/06/2026 , 04/02/2023, 03/30/2023, Additional history exists Respiratory Syncytial Virus (RSV) Vaccine Pt: or over 60 yrs (1 - 1-dose 75+ series) 2028 BONE DENSITY TESTING Completed 11/04/2022 HEPATITIS B VACCINE Aged Out No longe r eligible based on patient's age to complete this topic HIB VACCINE Aged Out No longer eligi ble based on patient's age to complete this topic HPV VACCINE Aged Out No longer eligi ble based on patient's age to complete this topic MENINGOCOCCAL (Group B) VACCINE SHARED DECISION-MAKING Aged Out No longer eligible based on patient's age to complete this topic MENINGOCOCCAL GROUPS A/C/Y/W VACCINE Aged Out No longer eligible based on patient's age to complete this topic Medical Devices Implanted Type Area Solar Electric Installer Device Identifier Shelf Expiration Date Model / Serial / Lot Cmnt Bone Plc R 40gm Grn Implanted:Qty: 1 on 02/26/2023 by Foster Silver MD at [facility] Right: Knee [employer] 07/09/2025 [id number] / / [id number] Tray Tib 75mm Kn Cocr I Beam Implanted:Qty: 1 on 02/26/2023 by Foster Silver MD at [facility] Right: Knee [employer] 10/28/2031 [id number] / / [id number] Cmpnt Fem Kn Rt Cr Cmnt Prm Vngrd Intlk 67.5 Mm Implanted:Qty: 1 on 02/26/2023 by Foster Silver MD at [facility] Right: Knee [employer] 12/27/2032 [id number] / / [id number] Cmpnt Ptlr Std 28mm 3 Pg Kn Ser A Implanted:Qty: 1 on 02/26/2023 by Foster Silver MD at [facility] Right: Knee [employer] 12/19/2027 [id number] / / [id number] Brng [id number] Vngrd Arcm Kn Ant Stab Implanted:Qty: 1 on 02/26/2023 by Foster Silver MD at [facility] Right: Knee [employer] 06/26/2025 [id number] / / [id number] Cmpnt Tibtry Kn Prm Lck Bar Bmt As Mx Implanted:Qty: 1 on 03/31/2023 by Tari Lloyd MD at [facility] Right: Knee [employer] 12/13/2032 [id number] / / [id number] Brng [id number] Vngrd Arcm Kn Ant Stab Implanted:Qty: 1 on 03/31/2023 by Tari Llyod MD at [facility] Right: Knee [employer] 03/09/2027 [id number] / / [id number] Cmpnt Tibtry Kn Prm Lck Bar Bmt As Mx Implanted:Qty: 1 on 04/02/2023 by Tari Lloyd MD at [facility] Right: Knee [employer] 01/20/2033 [id number] / / [id number] Tibial Bearing 18mm Implanted:Qty: 1 on 04/02/2023 by Tari Lloyd MD at [facility] Right: Knee 09/09/2023 [id number] / / [id number] Procedures Procedure Name Priority Date/Time Associated Diagnosis Comments COMPREHENSIVE METABOLIC PANEL AM Draw 04/06/2023 2:26 AM [facility] from Last 3 Months or Most Recently Relevant to Health Maintenance Results * (ABNORMAL) COMPREHENSIVE METABOLIC PANEL (04/06/2023 2:26 AM [facility]) Glucose 94 70 - 105 mg/dL 04/06/2023 3:07 AM [facility] Sodium 142 136 - 145 mmol/L 04/06/2023 3:07 AM [facility] Potassium 3.8 3.5 - 5.1 mmol/L 04/06/2023 3:07 AM [facility] Chloride 108(H) 98 - 107 mmol/L 04/06/2023 3:07 AM [facility] CO2 26 22 - 29 mmol/L 04/06/2023 3:07 AM [facility] Calcium 8.6 8.4 - 10.4 mg/dL 04/06/2023 3:07 AM [facility] Anion Gap 8 6 - 16 mmol/L 04/06/2023 3:07 AM [facility] BUN 15 7 - 26 mg/dL 04/06/2023 3:07 AM [facility] Creatinine 0.54(L) 0.57 - 1.11 mg/dL 04/06/2023 3:07 AM [facility] Alkaline Phosphatase 120 40 - 150 U/L 04/06/2023 3:07 AM [facility] ALT 19 0 - 55 U/L 04/06/2023 3:07 AM [facility] AST 27 5 - 34 U/L 04/06/2023 3:07 AM [facility] Protein Total 5.6(L) 6.4 - 8.3 gm/dL 04/06/2023 3:07 AM [facility] Albumin 2.3(L) 3.4 - 5.0 gm/dL 04/06/2023 3:07 AM [facility] Bilirubin Total 0.3 0.2 - 1.2 mg/dL 04/06/2023 3:07 AM [facility] eGFR by CKD-EPI >90 >=90 mL/min/1.7 3 m2 04/06/2023 3:07 AM [facility] Blood BLOOD SPECIMEN / Unknown Venipuncture / Unknown 04/06/2023 2:26 AM [facility] 04/06/2023 2:47 AM [facility] Joellen Hannah MD LAB - CHEMISTRY ORDERABLES Fi nal Result [facility] [address] [place] [address] from Last 3 Months or Most Recently Relevant to Health Maintenance Insurance [employer] MEDICARE ADV SELF PAY NO INSURANCE Member Subscriber Plan / Payer (Ef fective for All Dates) Name:Alisha Leavitt Member ID:Not on file Relation to Subscriber:Not on file Name:ALISHA LEAVITT Subscriber ID:Not on file (Home) Address: [address] [place] [phone] Payer ID:Not on file Group ID:Not on file Type:Self Pay Address: [place], [place] Advance Directives Documents on File Type Date Recorded 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
[2024-10-04 13:03] LABS: Iron 54 ug/dL (37-170)
[2024-10-04 13:13] LABS: Percent Iron Saturation 16 % (20-50)
[2024-10-04 13:39] LABS: Hepatitis B Surface Antigen Negative (Negative)
[2024-10-04 13:44] LABS: Ferritin 127.00 ng/mL (11.1-264)
[2024-10-04 13:45] LABS: HAV RESULT Negative (Negative); Hepatitis B Core IgM Result Negative (Negative)
[2024-10-05 15:09] LABS: Alkaline Phosphatase 171 IU/L (44-121)
[2024-10-05 18:08] LABS: ANA by IFA Rfx Titer/Pattern Positive (.)
== END 2024-10-04 12:10 | disposition home or self-care (01) ==
PROVIDERS: PCP Internal Medicine; Visit Provider Nurse Practitioner Family
DX: R10.12 Left upper quadrant pain (principal); R74.8 Abnormal levels of other serum enzymes
CPT/HCPCS: 36415; 80074; 82103; 82728; 83540; 83550; 84075; 84080; 86015; 86038; 86381